=== PATIENT | female | born 1950 | race Caucasian/White ===

== ENCOUNTER 2023-12-29 06:19 | Emergency (ER) | payer MEDICARE, OTHER, SELFPAY ==
[2023-12-29 06:33] VITALS: BP 187/108
[2023-12-29 07:03] LABS: % Basophils 1.1 % (0-2); % Eosinophils 5.8 % (0-6); % Immature Granulocytes 0.2 % (0-0.5); % Lymphocytes 22.8 % (20.5-51.1); % Monocytes 7.1 % (1.7-9.3); Absolute Basophils 0.1 10^3/uL (0-0.2); Absolute Eosinophils 0.3 10^3/uL (0-0.7); Absolute Lymphocytes 1.2 10^3/uL (1.2-3.4); Absolute Monocytes 0.4 10^3/uL (0.1-0.6); Absolute Neutrophils 3.4 10^3/uL (1.4-6.5); Hematocrit 43.1 % (37.0-47.0); Hemoglobin 14.3 g/dL (12.0-16.0); Mean Corp Hgb Conc. 33.2 g/dL (33.0-37.0); Mean Corpuscular Hgb 30.2 pg (27.0-31.0); Mean Corpuscular Volume 91.1 fL (81.0-99.0); Mean Platelet Volume 8.8 fL (7.4-10.4); Nucleated Red Blood Cells % 0 %; Platelet Count 262 10^3/uL (130-400); Red Blood Cell Count 4.73 10^6/uL (4.20-5.40); Red Cell Dist. Width 12.3 % (11.5-14.5); White Blood Cell Count 5.3 10^3/uL (4.8-10.8)
[2023-12-29 07:17] LABS: ALT (SGPT) 15 U/L (0-35); AST (SGOT) 32 U/L (14-36); Albumin 4.4 g/dl (3.5-5.0); Alkaline Phosphatase 78 U/L (38-126); Blood Urea Nitrogen 14 mg/dl (7-17); Calcium 9.8 mg/dl (8.4-10.2); Carbon Dioxide 25 mmol/L (22-30); Chloride 107 mmol/L (98-107); Glucose 114 mg/dl (70-99); Potassium 4.1 mmol/L (3.5-5.1); Sodium 136 mmol/L (135-145); Total Bilirubin 0.8 mg/dl (0.2-1.3); Total Protein 7.2 g/dl (6.3-8.2); eGFR > 60.00
[2023-12-29 07:27] LABS: Troponin I < 0.012 ng/ml
[2023-12-29 07:45] VITALS: BP 181/104
--- NOTE | 2023-12-29 07:59 | ED.GENMED ---
History of Present Illness
General
Chief Complaint: Blood Pressure Problem
Source: patient and records
Exam Limitations: none
Time Seen by Provider: 12/29/23 07:56
Nursing documentation reviewed up to this point in time: agreed with
Travel History
Have you had any contact with someone who has COVID-19?: No
Do you have any symptoms of coronavirus? Fever > 100 degrees, chills, cough, shortness of breath, sore throat, loss of taste or smell, muscle aches, or headache?: No
History of Present Illness
History of Present Illness:
Patient is a 73-year-old female who presents to the emergency department because over the past few days her blood pressure has been elevated. Patient was started on losartan in November because her blood pressure was running higher than normal.
After that the blood pressure is 10/02/2019 systolic and 60-70 diastolic. Over the past few days the blood pressure has been 170/100. Patient denies any weight change, hair or skin changes. Patient's thyroid was recently checked and fine. Patient
is on 25 mg of metoprolol. Patient denies headache, visual or speech difficulties. Patient denies ataxia or focal weakness. Patient denies chest pain, shortness of breath or palpitations. Patient denies any recent illnesses, supplements or
decongestants. Patient is otherwise feeling fine.
Past History
Past History
ED Past Medical History: Arrthythmia (Atrial fibrillation), Cancer (breast, stage III), HTN and Hypothyroidism
ED Past Surgical History: Other (mastectomy)
Social History
Tobacco: Non-smoker
Personal:
Living: with family
Family History
Family History: Other (History of Atrial fibrillation)
Review of Systems
Review of Systems
All Other Systems: ROS reviewed and negative except as documented in HPI and ROS
Constitutional: Reports no symptoms
Respiratory: Reports no symptoms
Cardiac: Reports no symptoms
ABD/GI: Reports no symptoms
: Reports no symptoms
Musculoskeletal: Reports no symptoms
Skin: Reports no symptoms
Neurological: Reports no symptoms
Hematologic/Lymphatic: Reports no symptoms
Phy Exam
Physical Exam
Physical Exam:
Physical Exam
General: No apparent distress, alert and appropriate, well nourished, well hydrated
HENT: Normocephalic, supple with no lymphadenopathy, no thyromegaly
Eyes: Clear sclera, conjuctiva without injection
Heart: Regular rhythm and rate. No S3, S4. No murmur. No NVD, bruit
Lungs: No respiratory distress, no stridor, lung sounds clear and equal bilaterallyender
Abdomen: Soft, nontender, no organomegaly, no CVA tenderness, BS good
Neuro: Alert and oriented x 3, CN II - XII intact, no motor focality, no cerebellar dysfunction
Skin: no rash
Psychiatric: well kept. interactive and cooperative
Extremities: No cyanosis, tenderness, Good and equal peripheral pulses. Chronic lymphedema of the left upper extremity
Scores
Heart Failure Risk
Heart Failure Risk Score: Not Applicable
Heart Score for Chest Pain Patients
STEMI patient?: Not applicable
Withdrawal Assessment of Alcohol
Withdrawal Assessment Completed?: Not applicable
Course
Orders/Labs/Results
Orders:
Orders
12/29/23 06:37
Electrocardiogram (*1) Urgent
Reason for Study: Hypertension, Benign
12/29/23 06:38
EKG- Treatment ONCE
12/29/23 06:50
Complete Blood Count/With Diff Urgent
Comprehensive Metabolic Panel Urgent
Troponin I Urgent
12/29/23 08:19
Metoprolol Xl [Toprol Xl] 25 mg PO NOW STA
Abnormal Lab Results
12/29/23
06:50
Glucose 114 H mg/dl
(70-99)
12/29/23 06:50
12/29/23 06:50
Vital Signs
Initial and Last Documented VS:
Initial Vital Signs
Temp Pulse Resp BP Pulse Ox
99.0 F 79 20 187/108 98
12/29/23 06:33 12/29/23 06:33 12/29/23 06:33 12/29/23 06:33 12/29/23 06:33
Last Documented Vital Signs
Temp Pulse Resp BP Pulse Ox
99.0 F 79 20 187/108 98
12/29/23 06:33 12/29/23 06:33 12/29/23 06:33 12/29/23 06:33 12/29/23 06:33
*Radiology
Radiology exam reviewed: other
*Pulse Oximetry
Patient hypoxic: no
*EKG
Interpreted by ED Provider?: Yes
EKG Intrepretation Date: 12/29/23
EKG Intrepretation Time: 08:23
Interpretation: abnormal
Comparison EKG: no changes
Heart Rate: 71
Rate: normal
Rhythm: sinus
[place]: left axis deviation
Interval: normal interval
QRS Pattern: normal QRS
Ischemia: no ischemia
*Regional Owner Operator Truck Driver Interpretation
Rate: normal
Interpretation: normal
Heart Rate: 76
Rhythm: sinus and PAC's
*Critical Care Note
Total Time (30-74mins, 75-104mins- exclusive of procedures): Not Applicable
Update Note
Update Note:
Patient has asymptomatic elevation of her blood pressure. Patient's heart rate is such that she has plenty of room to increase her metoprolol. Will increase her to 50 mg a day. Did tell the patient that we will take a few days to bring down as
long as she was asymptomatic that we could try to bring it down over period of days to weeks.
ED Attending Note
-
Portions of this chart may have been created with voice recognition software.� Occasional wrong word or��sound alike� substitutions may have occurred due to the inherent limitations of voice recognition software.
Discharge Plan
Departure
Patient Disposition: Home (Routine Discharge)
Date of Disposition: 12/29/23
Time of Disposition: 08:19
Patient with high blood pressure during this ER visit?: Yes
Condition: Good
Covid-19: Not Applicable
Discharge Problem:
Hypertension
Instructions: High Blood Pressure (DC), BLOOD PRESSURE
Prescriptions:
No Action
anastrozole 1 MG tablet
1 mg PO DAILY@529
levothyroxine 100 MCG tablet
100 mcg PO DAILY@529
cholecalciferol (vitamin D3) [Vitamin D3] 2,000 UNIT capsule
2,000 unit PO DAILY@929
mupirocin 1 APPLIC ointment
1 applic intranasal BID Qty: 1 0RF
sennosides [senna] 1 TABLET tablet
2 tab PO BID 0RF
acetaminophen 325 MG tablet
650 mg PO QID 0RF
tramadol 50 MG tablet
50 mg PO Q6HPRN PRN (Reason: MODERATE-SEVERE PAIN) Qty: 35 0RF
Rx Instructions:
DX TKA
ONGOING THERAPY
magnesium hydroxide 30 ML suspension
30 ml PO DAILYPRN PRN (Reason: constipation) 0RF
docusate sodium 100 MG capsule
100 mg PO BID 0RF
warfarin [Jantoven] 5 MG tablet
5 mg PO TONIGHT AT 1800 Qty: 25 0RF
Rx Instructions:
TAKE 1 TAB TONIGHT THEN ADVISED AFTER INR ON 06/07
STOP TAKING AFTER 06/19
losartan 50 MG tablet
50 mg PO DAILY@929 Qty: 0 0RF
Rx Instructions:
HOLD SYSTOLIC BLOOD PRESSURE <130
metoprolol tartrate 25 MG tablet
12.5 mg PO DAILY@929 Qty: 0 0RF
Patient Comments:
metoprolol XR
Rx Instructions:
TAKE HALF TAB 12.5MG PER CARDIOLOGY
apixaban [Eliquis] 5 MG tablet
5 mg PO BID Qty: 0 0RF
Rx Instructions:
RESUME AFTER 06/19 WHEN COUMADIN IS DISCONTINUED AND INR <2
Activity Restrictions/Additional Instructions:
I will be here Monday and Monday 6am-3pm. Please feel free to call me with any questions or concerns. Increase the metoprolol to 50mg a day. If this fails to bring down your blood pressure over the next week or so may need to go up on the
losartan or add a calcium channel rosario. Continue the rest your medications as needed.
Interventions
Interventions:
*Risk Screen - Suicide Last Done: 12/29/23 06:34
*General Assessment Last Done: 12/29/23 07:48
*Neglect/Abuse Screening Last Done: 12/29/23 06:34
*ED COVID-19 Vaccine History Last Done: 12/29/23 06:34
ED- Cardiac Assessment Last Done: 12/29/23 07:49
ED- Neurological Assessment Last Done: 12/29/23 07:49
ED- Pulmonary Assessment Last Done: 12/29/23 07:49
Discharge Date and Time
Print Language: LAO
[2023-12-29 08:00] VITALS: BP 169/96
[2023-12-29] MEDS: TOPROL XL 25 MG PO (08:28)
== END 2023-12-29 08:44 | disposition home or self-care (01) ==
LOC: EMR 06:19
PROVIDERS: Student in an Organized Health Care Education/Training Program; EMERGENCY PHYSICIAN Emergency Medicine; FAMILY PHYSICIAN Internal Medicine
DX: E03.9 Hypothyroidism, unspecified (principal); I48.0 Paroxysmal atrial fibrillation; G62.9 Polyneuropathy, unspecified; I10 Essential (primary) hypertension; M19.90 Unspecified osteoarthritis, unspecified site; Z85.3 Personal history of malignant neoplasm of breast; Z90.12 Acquired absence of left breast and nipple
CPT/HCPCS: 99283; 80053; 84484; 85025; 93005

== ENCOUNTER 2025-02-04 12:19 | Inpatient (IN) | payer MEDICARE, OTHER, SELFPAY ==
[2025-02-04] VITALS (9 sets, daily range): BP systolic 121–160; BP diastolic 77–95; BMI 28.4; BMI 27.8
[2025-02-04 09:23] LABS: Glucose - Point of Care 100 mg/dl (70-99)
--- NOTE | 2025-02-04 09:32 | EDRN ---
Dr. Hollis in room w/pt at this time.
--- NOTE | 2025-02-04 09:45 | ED.CVA ---
History of Present Illness
General
Chief Complaint: CVA/TIA Symptoms
Source: patient and spouse
Exam Limitations: none
Time Seen by Provider: 02/04/25 09:25
Onset of Stroke Symptoms
Onset of symptoms known: No
Time pt last seen normal is known: Yes
Date last time pt seen normal: 02/03/25
Time last time pt seen normal: 23:00
History of Present Illness
History of Present Illness:
74-year-old female 2 days of posterior neck pain nontraumatic. Saw her primary physician. Started on a Medrol Dosepak. However this morning she woke up with weakness and incoordination of her left side. No vertigo disequilibrium speech issues or
other complaints.
Past History
Past History
ED Past Medical History: Arrthythmia (Atrial fibrillation), Cancer (breast, stage III), HTN and Hypothyroidism
ED Past Surgical History: Other (mastectomy)
Social History
Tobacco: Non-smoker
Personal:
Living: with family
Family History
Family History: Other (History of Atrial fibrillation)
Review of Systems
Review of Systems
All Other Systems: Not applicable
Respiratory: Reports no symptoms
Cardiac: Reports no symptoms
Phy Exam
Physical Exam
Physical Exam:
GENERAL: Alert and oriented in no apparent distress
EYE: Orbits normal.
NECK: Supple, no significant adenopathy.
ENT: Pharynx without erythema
CARDIAC: Regular rate and rhythm without any obvious murmurs.
LUNGS: Clear breath sounds,normal
ABDOMEN: Soft, without focal tenderness or distention
NEUROLOGICAL: Alert and oriented , cranial nerves II through XII are intact. Speech normal. Extraocular muscles intact. Slightly decreased [id number] on the left and questionable tiny left-sided drift. However grossly has very good strength.
Slightly poor [id number] on the left. Light touch intact.
SKIN: Warm and dry, no rash or lesion, no discoloration, skin intact.
MUSCULOSKELETAL: No edema,no deformity.Good color
PSYCH: Normal and appropriate interaction.
Scores
NIH Stroke Score
Level of Consciousness: 0 - Alert
LOC Questions: 0-Answers both correctly
LOC Commands: 0-Performs both correctly
Best Horizontal Gaze: 0-Normal
Visual Knight: 0=Normal, no visual loss
Facial Palsy: 0=Normal, symmetrical
Motor - Right Arm: 0=No drift 10 seconds
Motor - Left Arm: 1=Drift < 10 seconds
Motor - Right Le-No drift 5 seconds
Motor - Left Le-Drift < 5 seconds
Limb Ataxia: 2-Present in two limbs
Sensation: 0-Normal
Best Language: 0-No aphasia
Dysarthria: 0-Normal
Extinction and Inattention: 0-No abnormality
Total Score:: 4
Course
Orders/Labs/Results
Orders:
Orders
02/04/25 09:36
Electrocardiogram (*1) Stat
Reason for Study: Other
Other Reason for Exam: neuro symptoms
CT HEAD STROKE ALERT W/o Cont Urgent
Comment:
Reason For Exam: Left-sided weakness
CT HEAD/NECK ANG STROKE ALERT Urgent
Comment:
Reason For Exam: Left-sided weakness
Bedside Glucose- Treatment ONCE
Cardiac Monitoring- Treatment ONCE
EKG- Treatment ONCE
IV Insert/Care/Rem.- Treatment PRN
Pulse Ox/cont/shift [RESP] Stat
Quantity: 1
02/04/25 10:00
Basic Metabolic Panel Urgent
Complete Blood Count/With Diff Urgent
PTT Urgent
Prothrombin Time Urgent
02/04/25 10:15
MR Cervical Spine Without Urgent
Comment:
Reason For Exam: Cervical radiculopathy
OK for patient to be off Cardiac Monitoring for MRI: No
Recent pill cam endoscopy?: No
02/04/25 10:25
Acetaminophen [Tylenol] 650 mg .ROUTE .STK-MED ONE
02/04/25 10:26
Acetaminophen [Tylenol] 650 mg PO NOW STA
02/04/25 11:01
MR Brain W/o & With Contrast Routine
Comment:
Reason For Exam: left arm weakness
OK for patient to be off Cardiac Monitoring for MRI: No
Recent pill cam endoscopy?: No
02/04/25 11:42
Admit/Transfer Patient As Directed
Co-Sign Provider:
Level of Care: Inpatient admission
Assign to:: Telemetry
Physician / Group: Darrell Julien
Diagnosis: CVA
Reason for Telemetry: CVA/TIA
Date to Stop Telemetry: 02/07/25
Time to Stop Telemetry: 11:00
Reason for Hospitalization: CVA vs Polyradiculopathy
Expected length of stay greater than two midnights?: Yes
ELOS- Estimated Length of Stay in days: 2
I certify the patient meets the requirements for IP care: Yes
PRN Pain Medication Management As Directed
May give lesser potent ordered pain med per pt: Yes
preference::
Protocol:: Medication orders for pain may be administered in a
manner that supports deferring to patient preference
when the pt is:
- Requesting an ordered lesser potent pain medication.
Least to most potent pain medications are defined
as: acetaminophen < NSAID < tramadol < opioids
(morphine, oxycodone, hydromorphone).
- Requesting a lesser dose of the same medication IF
ORDERED.
- Requesting a less intrusive route of administration
if both routes are prescribed by the provider (PO <
IV).
02/04/25 11:45
Code Status As Directed
Resuscitation Status: Full Code
02/07/25 11:00
DC Protocol for Telemetry ONCE
Abnormal Lab Results
02/04/25 02/04/25 02/04/25
09:18 10:00 10:01
WBC 11.3 H 10^3/uL
(4.8-10.8)
MCH 31.5 H pg
(27.0-31.0)
Abs Immat Gran (auto) 0.1 H 10^3/uL
(0-0.05)
Absolute Neuts (auto) 9.4 H 10^3/uL
(1.4-6.5)
Absolute Lymphs (auto) 1.1 L 10^3/uL
(1.2-3.4)
Neutrophils % 83.8 H %
(42.2-75.2)
Lymphocytes % 10.0 L %
(20.5-51.1)
PT 15.0 H Sec
(11.4-14.6)
Glucose 116 H mg/dl
(70-99)
POC Glucose 100 H mg/dl 104 H mg/dl
(70-99) (70-99)
02/04/25 10:00
02/04/25 10:00
Vital Signs
Initial and Last Documented VS:
Initial Vital Signs
Temp Pulse Resp BP Pulse Ox
98.4 F 65 20 152/89 98
02/04/25 09:16 02/04/25 09:16 02/04/25 09:16 02/04/25 09:16 02/04/25 09:16
Last Documented Vital Signs
Temp Pulse Resp BP Pulse Ox
98.4 F 68 20 160/88 96
02/04/25 09:16 02/04/25 11:15 02/04/25 11:15 02/04/25 11:00 02/04/25 11:15
MDM/Problems Addressed
Differential Diagnosis Includes:
Patient describing a wake-up stroke. Has had neck pain the last few days nontraumatic. On Eliquis. Not thrombolytic candidate. Would potentially be a IAT candidate if appropriate. Stroke alert called. Discussed perfusion scan with neurology.
Will hold on perfusion scan. Also would consider dissection with posterior neck pain
*Radiology
Radiology exam reviewed: radiology read reviewed (No acute findings)
*Pulse Oximetry
Patient hypoxic: no
*EKG
Interpreted by ED Provider?: Yes
Interpretation: normal
Comparison EKG: no changes
Heart Rate: 70
Rate: normal
Rhythm: sinus and PAC's
[place]: left axis deviation
Interval: normal interval
QRS Pattern: normal QRS
Ischemia: no ischemia
*Terrazzo Installer Interpretation
Rate: normal
Interpretation: normal
Heart Rate: 77
Rhythm: sinus
*Critical Care Note
Total Time (30-74mins, 75-104mins- exclusive of procedures): 40
Data Reviewed
Review of Other/Old Records Reveals: Labs, Records and Testing
Update Note
Update Note:
Patient has remained stable. CTA negative. Admission for further care
ED Attending Note
-
Portions of this chart may have been created with voice recognition software.� Occasional wrong word or��sound alike� substitutions may have occurred due to the inherent limitations of voice recognition software.
Discharge Plan
Departure
Patient Disposition: Admit
Date of Disposition: 02/04/25
Time of Disposition: 10:27
Presentation/result/management discussed w/ accepting MD/DO: Neurology
Discharge Problem:
Left-sided weakness/neck pain, Possible CVA, Anticoagulated
Prescriptions:
No Action
cholecalciferol (vitamin D3) [Vitamin D3] 2,000 UNIT capsule
2,000 unit PO DAILY
Eliquis 5 MG tablet
5 mg PO BID Qty: 0 0RF
metoprolol succinate [Toprol XL] 50 mg tablet extended release 24 hr
50 mg PO DAILY Qty: 30 2RF
acetaminophen [Tylenol Extended Release] 650 mg Tablet Extended Release
1,300 mg PO [id number] PRN (Reason: mild pain)
losartan 50 MG tablet
50 mg PO BID
levothyroxine [Synthroid] 88 mcg Tablet
88 mcg PO DAILY
methylprednisolone [Medrol (Sean)] 4 mg Tablets,Dose Pack
0 mg PO PER PKG DIR
rosuvastatin [Crestor] 10 mg Tablet
10 mg PO DAILY
escitalopram oxalate [Lexapro] 5 mg Tablet
5 mg PO HS
Referrals:
UNKNOWN - PT DOES,NOT KNOW [Family Provider] -
Interventions
Interventions:
*Risk Screen - Suicide Last Done: 02/04/25 10:08
*General Assessment Last Done: 02/04/25 10:08
*Neglect/Abuse Screening Last Done: 02/04/25 10:08
*ED- Fall Risk Assessment Last Done: 02/04/25 10:08
*ED COVID-19 Vaccine History Last Done: 02/04/25 10:08
ED- Pulmonary Assessment Last Done: 02/04/25 10:19
ED- Neurological Assessment Last Done: 02/04/25 10:14
ED- Cardiac Assessment Last Done: 02/04/25 10:19
ED Swallowing Screen Last Done: 02/04/25 10:14
Discharge Date and Time
Print Language: [place] CITIZ[place]
--- NOTE | 2025-02-04 09:56 | EDRN ---
Neurologist in room w/ pt on return from CT.
[2025-02-04 10:02] LABS: Glucose - Point of Care 104 mg/dl (70-99)
--- NOTE | 2025-02-04 10:05 | CON.NEURO ---
Consultation
Order
Date of Consultation: 02/04/25
Requesting Provider: Mazin Hollis MD
Reason for Consult: Stroke alert
Called in 9: 39 AM
Neurology Consultation Note.
HPI: This is a 74-year-old right-handed woman who presents to [facility] on February 04, 2025 with motor and sensory deficits. According to the patient she developed shoulder and neck spasms, as well as sensory changes in L>R hand on
Monday afternoon when the patient reached out to hand a piece of paper and felt something pull across the top of their shoulders in the 'trapezius area'.
Following this incident, the patient experienced spasms across both shoulders, tenderness on palpation which have been persistent. The patient initially noticed tingling in both hands on Monday, which subsided on Monday but has since returned
intermittently with the spasms.
This morning, Ms. Stephens noted decreased temperature sensation in her left hand, when she was unable to feel an ice pack applied to her neck for spasms relief. The right hand maintained normal sensation. The patient denies weakness in the hands
but expresses difficulty in explaining the exact sensation. They also report that while walking, their legs felt as if her knees were going to give out, though they distinguish this from vertigo, which they experienced years ago.
The patient noted left arm weakness and coordination difficulties noticed upon waking at 5 AM this morning. She went to sleep around 9 PM yesterday. No reports of headaches, change in vision, speech, vertigo or abnormal movements. Ms. Stephens
woke up during the night due to head pain that extended to the shoulders. It is unclear whether the left-sided weakness was present during this nighttime awakening.
The patient's reports that a couple of days ago, she experienced pain in her left shoulder near her neck after lifting something. Initially, she thought it was a pinched nerve, but the pain progressively worsened.
Her symptoms continued to worsen overnight, with increasing pain and difficulty sleeping. The patient attempted to alleviate her symptoms with heat pads and ice packs, but these measures were ineffective. This morning, she asked her to bring
her to the hospital due to left hand weakness.
ER VS: 155/88, 64, afebrile.
PDMP:none
CT head wo contrast -minimal decreased attenuation in the periventricular deep white matter bilaterally
CTA head/neck�no evidence of significant stenosis or dissection.
PMH: A-fib, HTN, DLP, L breast adenocarcinoma(status post chemo and RT), hypothyroidism, L arm lymphedema, vitamin D deficiency, OA, KERI
PSH: L mastectomy/axillary nerve dissection(2010), bilateral cataract extraction, tubal ligation, Bl TKA,
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
FH: Father, brother�A-fib,mother BRCA/breast cancer
All: ACEIs
ROS: Constitutional: Negative. Negative for chills, fever and unexpected weight change.
HENT: Negative for ear pain, hearing loss, tinnitus and trouble swallowing.
Eyes: Negative. Negative for photophobia, pain and visual disturbance.
Respiratory: Negative for cough, choking and shortness of breath.
Cardiovascular: Negative for chest pain, palpitations and leg swelling.
Gastrointestinal: Negative for abdominal pain and vomiting.
Endocrine: Negative. Negative for cold intolerance.
Genitourinary: Negative for dysuria, flank pain and urgency.
Musculoskeletal: positive for neck pain
Skin: Negative for rash.
Allergic/Immunologic: Negative. Negative for immunocompromised state.
Neurological: Positive for left arm weakness and paresthesias
Psychiatric/Behavioral: Negative for behavioral problems, confusion and hallucinations.
General: Well developed. In no acute distress.
Cardio: Regular rate and rhythm without murmur. Extremities are without cyanosis or edema.
Neuro:
Mental Status: Alert, oriented to person, place, and date. Minimally impaired attention and recall. Good fund of knowledge. Follows complex requests across the midline. Comprehension, naming, and repetition intact.
Cranial Nerves: Pupils are equally round, surgical EOMs full. Visual stevens full to confrontation. No ptosis. No nystagmus. V1-V3 intact to light touch and pinprick bilaterally, symmetric. Face symmetric. Reduced hearing on the left. The
palate elevated well. SCMs and traps 5/5. Tongue midline. No dysarthria.
Motor: Strength is 5 out of 5 except for left deltoid, triceps, biceps 4 out of 5.
Sensory: Absent vibration at the toes and ankles and preserved at the knees
Reflexes: Absent left biceps and triceps. Negative Rachel's bilaterally. Negative clonus of the ankles
Coordination: No dysmetria or tremor. No extinction to DSS
Gait: deferred
Assessment and Plan:
I. Probable C5-C7 cervical radiculopathy, less likely post-RT brachial plexopathy. Not a candidate for IV TNK due to systemic anticoagulation.
II. PA A-fib
III. Chronic toxic polyneuropathy.
IV. Stage III left breast cancer, status post remote RT
- Continue Telemetry monitoring
- Fall precautions
- Please obtain C-spine MRI without gadolinium
- Brain MRI with and without keri
- Hold Eliquis and start aspirin 81 mg daily
- Further workup will depend on MRI results
- DVT prophylaxis.
I personally reviewed all radiology and labs along with past medical records pertinent to current medical problems. Total time spent in patient care is 60 minutes.
Thank you for allowing us to participate in the care of this patient. We will continue to follow. Please do not hesitate to contact us with any questions or concerns.
Subjective/Objective
Subjective Data
Date of Service: February 04, 2025
Objective Data
Vital Signs
Temp Pulse Resp BP Pulse Ox
36.9 C 65 20 152/89 98
02/04/25 09:16 02/04/25 09:16 02/04/25 09:16 02/04/25 09:16 02/04/25 09:16
Patient Allergies
lisinopril Adverse Reaction (Verified 12/29/23 06:33)
cough
Medications
-
Home Medications
�Medication �Instructions �Recorded
anastrozole 1 mg tablet 1 mg PO DAILY@52912/23/12
cholecalciferol (vitamin D3) 50 2,000 unit PO DAILY@92905/15/19
mcg (2,000 unit) capsule (Vitamin
D3)
levothyroxine 100 mcg tablet 100 mcg PO DAILY@52905/15/19
mupirocin 2 % topical ointment 1 applic intranasal BID #1 tube 05/27/19
acetaminophen 325 mg tablet 650 mg (2 x 325 mg) PO QID 06/06/19
apixaban 5 mg tablet (Eliquis) 5 mg PO BID ##0 06/06/19
docusate sodium 100 mg capsule 100 mg PO BID 06/06/19
losartan 50 mg tablet 50 mg PO DAILY@929 ##0 06/06/19
magnesium hydroxide 400 mg/5 mL 30 ml PO DAILYPRN PRN constipation 06/06/19
oral suspension
metoprolol tartrate 25 mg tablet 12.5 mg (1/2 x 25 mg) PO 06/06/19
DAILY@929 ##0
sennosides 8.6 mg tablet (senna) 2 tab PO BID 06/06/19
tramadol 50 mg tablet 50 mg PO Q6HPRN PRN 06/06/19
MODERATE-SEVERE PAIN #35 tabs
warfarin 5 mg tablet (Jantoven) 5 mg PO TONIGHT AT 1800 #25 tabs 06/06/19
metoprolol succinate 50 mg 50 mg PO DAILY #30 tabs 12/29/23
tablet,extended release 24 hr
(Toprol XL)
Vital Signs and Labs
-
Vital Signs and Labs:
Vital Signs
Temp Pulse Resp BP Pulse Ox
36.9 C 64 18 155/88 98
02/04/25 09:16 02/04/25 10:01 02/04/25 10:01 02/04/25 10:01 02/04/25 10:01
Home Medications
-
Home Medications
cholecalciferol (vitamin D3) 50 mcg (2,000 unit) capsule (Vitamin D3) 2,000 unit PO DAILY@0930 05/15/19
apixaban 5 mg tablet (Eliquis) 5 mg PO BID ##0 06/06/19
metoprolol succinate 50 mg tablet,extended release 24 hr (Toprol XL) 50 mg PO DAILY #30 tabs 12/29/23
acetaminophen 650 mg tablet,extended release 1,300 mg PO [id number] PRN mild pain 02/04/25
escitalopram oxalate 5 mg tablet (Lexapro) 5 mg PO HS 02/04/25
levothyroxine 88 mcg tablet (Synthroid) 88 mcg PO DAILY 02/04/25
losartan 50 mg tablet 50 mg PO BID 02/04/25
methylprednisolone 4 mg tablets in a dose pack (Medrol (Sean)) 0 mg PO PER PKG DIR 02/04/25
rosuvastatin 10 mg tablet (Crestor) 10 mg PO DAILY 02/04/25
[2025-02-04 10:21] LABS: % Basophils 0.4 % (0-2); % Eosinophils 0.4 % (0-6); % Immature Granulocytes 0.4 % (0-0.5); % Neutrophils 83.8 % (42.2-75.2); Absolute Eosinophils 0.1 10^3/uL (0-0.7); Absolute Immature Granulocytes 0.1 10^3/uL (0-0.05); Absolute Lymphocytes 1.1 10^3/uL (1.2-3.4); Absolute Monocytes 0.6 10^3/uL (0.1-0.6); Absolute Neutrophils 9.4 10^3/uL (1.4-6.5); Hematocrit 40.5 % (37.0-47.0); Mean Corp Hgb Conc. 34.6 g/dL (33.0-37.0); Mean Corpuscular Hgb 31.5 pg (27.0-31.0); Mean Platelet Volume 9.2 fL (7.4-10.4); Nucleated Red Blood Cells % 0 %; Platelet Count 280 10^3/uL (130-400); Red Blood Cell Count 4.45 10^6/uL (4.20-5.40); Red Cell Dist. Width 12.6 % (11.5-14.5); White Blood Cell Count 11.3 10^3/uL (4.8-10.8)
[2025-02-04] MEDS: TYLENOL 650 MG PO ×2 (10:26→15:06)
[2025-02-04 10:33] LABS: APTT 28.8 Sec (23.4-35.0); INR 1.15
[2025-02-04 10:37] LABS: Blood Urea Nitrogen 15 mg/dl (7-17); Calcium 9.7 mg/dl (8.4-10.2); Carbon Dioxide 23 mmol/L (22-30); Chloride 106 mmol/L (98-107); Estimated Creatinine Clearance 70 ml/min; Glucose 116 mg/dl (70-99); Potassium 3.7 mmol/L (3.5-5.1); Sodium 138 mmol/L (135-145); eGFR > 60.00
--- NOTE | 2025-02-04 10:39 | EDRN ---
Pt states that she awoke this am and had a near syncopal episode attempting to get OOB so sat prior to standing but when she did get up she was not walking correctly, L leg weak and feeling as if knee going to give out. Pt does have neuropathy in
her feet. Pt also feeling as if L arm was off. Pt also states she took 5 mg of flexeril prior to sleeping Monday night. Pt states she reached out w/ L arm to show spouse something to her spouse on Sat and felt a pull in her L lateral neck/trapezius
area. Pt feeling nothing else that day and slept fine Monday night. Pt states Monday was a bad day w/ spasms in her bilateral neck accompanied w/. tingling in bilateral fingertips and then would get pain in her posterior head. Pt finally got some
relief after taking 200 mg of motrin then was unable to sleep at all throughout the night r/t the spasms, tingling and posterior head pain. Pt saw her PCP on Monday and was diagnosed w/ possible trapezius pull L shoulder area and prescribed flexeril
5 mg and medrol dose thea.
--- NOTE | 2025-02-04 11:29 | EDRN ---
Pt OOB to BR and limped toward L leg.
--- NOTE | 2025-02-04 11:31 | EDRN ---
Dr. Michelle Julien in room w/pt at this time.
--- NOTE | 2025-02-04 11:36 | EDRN ---
Pt was able to return to stretcher w/out much difficulty but her L side gait was still off.
--- NOTE | 2025-02-04 12:46 | EDRN ---
TT sent to Michelle Chamorro about pt's medrol dosepak she is on for her trapezius pull as a dose was due at noon, w/ info that pt did pass her swallow test as well.
--- NOTE | 2025-02-04 14:19 | HPS.HSE ---
Family Physician
-
Family Physician: NOT KNOW UNKNOWN - PT DOES
Chief Complaint
-
LLU weakness and numbness
History of Present Illness
74 female history of atrial fibrillation hypertension hypothyroidism hyperlipidemia who presents with weakness numbness tingling in the left upper extremity that began overnight. States 3 days ago began to experience muscle spasms in the neck and
shoulder region bilaterally however developed sensory changes Monday afternoon. States prior to this was helping to lift something for her when the states to clinic and after that has had pain. Thought this was a pinched nerve.
Additionally, visit was prompted by holding a cold ice pack in her right hand noticing it was cold however her left hand was unable to sense this
Also states that her gait is abnormal now and feels unsteady.
In the ED remained hemodynamically stable. CBC unremarkable apart from white blood cell count of 11.3, chemistry overall, head CT with no acute intracranial abnormalities, head and neck CTA no significant carotid atherosclerotic laterally no
evidence of internal carotid artery or vertebral artery dissection bilaterally and no significant proximal intracranial arterial stenosis or vessel cutoff noted.
Did not receive TNKase as on Eliquis 5 mg twice a day.
Past surgical history of tubal ligation, left and right knee replacement, mastectomy with node dissection.
Never smoker, alcohol rarely once or twice a week, no drug use history
Family history mom atrial fibrillation CVA, father atrial fibrillation heart failure, brother atrial fibrillation Parkinson's unclear cause of at this time
Allergies to lisinopril causes dry cough
Medical History
Past Medical History
Past Medical History: Reports Arrhythmia
Past Surgical History: Reports Gynocological, Orthopedic and Other
Social History
Tobacco: Non-smoker
Family History
Family History: CAD and Other
Allergies / Home Medications
Allergies reflects when Allergies were last updated in [facility].
Home Medications with original date entered in [facility]
Allergy/Medication List:
Allergies
Allergy/AdvReac Type Severity Reaction Status Date / Time
lisinopril AdvReac cough Verified 12/29/23 06:33
Home Medications
cholecalciferol (vitamin D3) 50 mcg (2,000 unit) capsule (Vitamin D3) 2,000 unit PO DAILY 05/15/19
apixaban 5 mg tablet (Eliquis) 5 mg PO BID ##0 06/06/19
metoprolol succinate 50 mg tablet,extended release 24 hr (Toprol XL) 50 mg PO DAILY #30 tabs 12/29/23
acetaminophen 650 mg tablet,extended release 1,300 mg PO [id number] PRN mild pain 02/04/25
escitalopram oxalate 5 mg tablet (Lexapro) 5 mg PO HS 02/04/25
levothyroxine 88 mcg tablet (Synthroid) 88 mcg PO DAILY 02/04/25
losartan 50 mg tablet 50 mg PO BID 02/04/25
methylprednisolone 4 mg tablets in a dose pack (Medrol (Sean)) 0 mg PO PER PKG DIR 02/04/25
rosuvastatin 10 mg tablet (Crestor) 10 mg PO DAILY 02/04/25
Review of Systems
-
A 12 point ROS was completed and negative except as noted: Yes
Physical Exam
Vital Signs
Vital Signs
Temp Pulse Resp BP Pulse Ox
98.4 F 59 21 144/77 96
02/04/25 09:16 02/04/25 14:00 02/04/25 14:00 02/04/25 14:00 02/04/25 13:15
Physical Exam
General: Well Developed
Laboratory Results
-
02/04/25 10:00
02/04/25 10:00
Laboratory Results
PT 15.0 Sec (11.4-14.6) H 02/04/25 10:00
INR 1.15 02/04/25 10:00
APTT 28.8 Sec (23.4-35.0) 02/04/25 10:00
Impression/Plan
-
NAD
Scleral Anicteric
MMM
No JVD
CTABL
RRR, S1/S2
Soft, NT, ND, BS+
Warm, Dry
AAOx3, CN II to XII intact, movable, yzusla-um-ubie movements intact, tdkv-qr-bcsr intact, no pronator drift, 5/5 motor strength in bilateral upper and lower extremities
Calm
Suspect cervical radiculopathy less likely acute CVA
MRI brain, MRI C-spine
Hold Eliquis, if stroke ruled out can resume
Start aspirin, if stroke ruled out can discontinue in favor of Eliquis
Telemetry
Fall precautions
Change Crestor from 10 mg to 20 mg at bedtime
PT/OT
Continue Medrol Dosepak
Neurology
Atrial fibrillation�paroxysmal
Currently in sinus rhythm
Hold Eliquis in the off chance this is a stroke to prevent hemorrhagic conversion
Continue beta-rosario
Hypothyroidism
Continue Synthroid
Hypertension
Continue antihypertensive
Depression
Continue antidepressives
[2025-02-04] MEDS: TOPROL XL 50 MG PO (15:05)
--- NOTE | 2025-02-04 16:17 | PTCARENOTE ---
Pt here for Echo and Bubble Study. Right antecubital IV site clear, flushed easily, no redness, no edema. Bubble Study completed per protocol with aseptic technique, pt tolerated procedure well. Denies dizziness, pt offers no complaints. No
change in status.
[2025-02-04] MEDS: COZAAR 50 MG PO (19:59)
[2025-02-04] MEDS: LEXAPRO 5 MG PO (22:22)
[2025-02-05] VITALS (11 sets, daily range): BP systolic 68–144; BP diastolic 62–88; PULSE 69; BMI 27.5
--- NOTE | 2025-02-05 00:49 | PTCARENOTE ---
assumed care of patient. pt is AAOx3- anxious and tearful about diagnosis. 97% RA. VSS. pt able to use bscx2 assist but getting weaker throughout shift. pt with frequent urination, distended bladder, and feeling like she is not emptying her bladder.
bladder scanned for 1035ml. 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 pt reported immediate relief. NIH remains 3- drift in both left arm and leg, some ataxia clumsiness to left arm. MRI performed tonight. care
ongoing.
[2025-02-05] MEDS: TYLENOL 650 MG PO ×5 (01:28→21:42)
--- NOTE | 2025-02-05 04:40 | PTCARENOTE ---
pt getting weaker and weaker throughout shift. was x1 assist to BSC at beginning of shift. x2 assist to BSC throughout shift to almost fully lifting pt OOB. NIH still remains 3, legs just almost buckling when OOB. pt educated on using bedpan now
until her strength is better and for safety. patient agreeable.
[2025-02-05] MEDS: SYNTHROID 88 MCG PO (05:35)
[2025-02-05 07:08] LABS: HDL Cholesterol 103 mg/dl; LDL Cholesterol, Calculated 61 mg/dl; Total Cholesterol 180 mg/dl (50-199); Triglyceride 80 mg/dl (10-149); Very Low Density Lipoprotein 16 mg/dl (0-30)
--- NOTE | 2025-02-05 07:34 | W.PN.NEURO.1 ---
Today's Communication / Plan
-
.
Subjective/Objective
Subjective Data
Date of Service: February 05, 2025
Neurology follow-up note.
Ms. Stephens reports experiencing spasms in the neck and legs, as well as urinary retention. She describes a sensation in her legs as 'like jogging' or spasming, which are reported to be painless. She endorses proximal upper extremity weakness.
No change in vision, headaches dysphagia, dyspnea dysarthria. No recent vaccinations or travel.
C-spine MRI with and without keri�C2, C3, and C4 enhancing 4.4 cm intramedullary lesion, severe DJD.
Brain MRI with and without keri�no acute infarct or enhancement.
PMH: A-fib, HTN, DLP, L breast adenocarcinoma(status post chemo and RT), hypothyroidism, L arm lymphedema, vitamin D deficiency, OA, KERI
PSH: L mastectomy/axillary nerve dissection(2010), bilateral cataract extraction, tubal ligation, Bl TKA,
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
FH: Father, brother�A-fib,mother BRCA/breast cancer
All: ACEIs
ROS: Constitutional: Negative. Negative for chills, fever and unexpected weight change.
HENT: Negative for ear pain, hearing loss, tinnitus and trouble swallowing.
Eyes: Negative. Negative for photophobia, pain and visual disturbance.
Respiratory: Negative for cough, choking and shortness of breath.
Cardiovascular: Negative for chest pain, palpitations and leg swelling.
Gastrointestinal: Negative for abdominal pain and vomiting.
Endocrine: Negative. Negative for cold intolerance.
Genitourinary: Negative for dysuria, flank pain and urgency.
Musculoskeletal: positive for neck pain
Skin: Negative for rash.
Allergic/Immunologic: Negative. Negative for immunocompromised state.
Neurological: Positive for left arm weakness and paresthesias
Psychiatric/Behavioral: Negative for behavioral problems, confusion and hallucinations.
General: Well developed. In no acute distress.
Cardio: Regular rate and rhythm without murmur. Extremities are without cyanosis or edema.
Neuro:
Mental Status: Alert, oriented to person, place, and date. Minimally impaired attention and recall. Good fund of knowledge. Follows complex requests across the midline. Comprehension, naming, and repetition intact.
Cranial Nerves: Pupils are equally round, surgical EOMs full. Visual stevens full to confrontation. No ptosis. No nystagmus. V1-V3 intact to light touch and pinprick bilaterally, symmetric. Face symmetric. Reduced hearing on the left. The
palate elevated well. SCMs and traps 5/5. Tongue midline. No dysarthria.
Motor: Strength is 5 out of 5 except for bilateral dense 4 out of 5, bilateral biceps 4 out of 5
Sensory: Absent vibration at the toes and ankles and preserved at the knees
Reflexes: 1+ R biceps, limited exam of the left upper extremity due to compression sleeve. Negative Rachel's bilaterally. Negative clonus of the ankles
Sensory: Absent vibration in the toes and ankles (chronic)
Coordination: No dysmetria or tremor. No extinction to DSS
Gait: deferred
Assessment and Plan:
I. C2-C4 intrinsic myelopathy. Differential diagnosis includes autoimmune vs inflammatory vs demyelinating, less likely vascular, infectious or neoplastic.
II. PA A-fib
III. Chronic toxic polyneuropathy.
IV. Stage III left breast cancer, status post remote RT
- Continue Telemetry monitoring
- Please check postvoid residuals
- Fall and aspiration precautions
- Please obtain T-spine MRI with and without keri
- Myelopathy blood
- Start gabapentin
- CSF studies
- PT
- Mechanical and chemical DVT prophylaxis
I personally reviewed all radiology and labs along with past medical records pertinent to current medical problems. Total time spent in patient care is 60 minutes
Objective Data
Vital Signs
Temp Pulse Resp BP Pulse Ox
36.6 C 61 20 142/80 94
02/05/25 03:35 02/05/25 03:35 02/05/25 03:35 02/05/25 03:35 02/05/25 03:35
Lab Results
02/04/25 10:00
02/04/25 10:00
PT 15.0 Sec (11.4-14.6) H 02/04/25 10:00
INR 1.15 02/04/25 10:00
APTT 28.8 Sec (23.4-35.0) 02/04/25 10:00
Sodium 138 mmol/L (135-145) 02/04/25 10:00
Potassium 3.7 mmol/L (3.5-5.1) 02/04/25 10:00
BUN 15 mg/dl (7-17) 02/04/25 10:00
Glucose 116 mg/dl (70-99) H 02/04/25 10:00
Calcium 9.7 mg/dl (8.4-10.2) 02/04/25 10:00
LDL Cholesterol, Calc 61 mg/dl 02/05/25 05:44
Patient Allergies
lisinopril Adverse Reaction (Verified 12/29/23 06:33)
cough
Vital Signs and Labs
-
Vital Signs and Labs:
Vital Signs
Temp Pulse Resp BP Pulse Ox
36.7 C 61 16 144/77 98
02/05/25 07:15 02/05/25 08:29 02/05/25 07:15 02/05/25 08:29 02/05/25 07:15
Lab Results
02/04/25 10:00
02/04/25 10:00
PT 15.0 Sec (11.4-14.6) H 02/04/25 10:00
INR 1.15 02/04/25 10:00
APTT 28.8 Sec (23.4-35.0) 02/04/25 10:00
Sodium 138 mmol/L (135-145) 02/04/25 10:00
Potassium 3.7 mmol/L (3.5-5.1) 02/04/25 10:00
BUN 15 mg/dl (7-17) 02/04/25 10:00
Glucose 116 mg/dl (70-99) H 02/04/25 10:00
Calcium 9.7 mg/dl (8.4-10.2) 02/04/25 10:00
LDL Cholesterol, Calc 61 mg/dl 02/05/25 05:44
Medications
-
Medications:
Generic Name Dose Route Start Last Admin
Trade Name Freq PRN Reason Stop Dose Admin
Acetaminophen 650 mg 02/04/25 14:29
Acetaminophen 650 Mg Rectal Suppository RECTAL 03/04/25 14:28
Q4HPRN PRN
PEREZ, mild pain, or temp >100.4F
Acetaminophen 650 mg 02/04/25 14:29 02/05/25 06:31
Acetaminophen 325 Mg Tablet PO 03/04/25 14:28 650 mg
Q4HPRN PRN Administration
PEREZ, mild pain, or temp >100.4F
Aspirin 81 mg 02/05/25 08:00 02/05/25 08:29
Aspirin 81 Mg Chewable Tablet PO 03/05/25 07:59 81 mg
DAILY CARLOS A Administration
Cholecalciferol 50 mcg 02/05/25 08:00 02/05/25 08:30
Cholecalciferol (Vitamin D3) 50 Mcg Tablet (2,000 Units) PO 03/05/25 07:59 50 mcg
DAILY CARLOS A Administration
Escitalopram Oxalate 5 mg 02/04/25 22:00 02/04/25 22:22
Escitalopram 5 Mg Tablet PO 03/04/25 21:59 5 mg
HS CARLOS A Administration
Methylprednisolone Sodium 58 mls @ 100 mls/hr 02/05/25 08:00 02/05/25 08:30
Succinate 500 mg/ Sodium IV 06/04/25 07:59 58 mls
Chloride Q24H CARLOS A Administration
Levothyroxine Sodium 88 mcg 02/05/25 06:00 02/05/25 05:35
Levothyroxine 88 Mcg Tablet PO 03/05/25 05:59 88 mcg
DAILY@0600 CARLOS A Administration
Losartan Potassium 50 mg 02/04/25 20:00 02/05/25 08:29
Losartan 50 Mg Tablet PO 03/04/25 19:59 50 mg
BID CARLOS A Administration
Metoprolol Succinate 50 mg 02/04/25 14:29 02/05/25 08:29
Metoprolol 50 Mg Extended Release Tablet PO 03/04/25 14:28 50 mg
DAILY CARLOS A Administration
Rosuvastatin Calcium 20 mg 02/05/25 08:00 02/05/25 08:30
Rosuvastatin (Crestor) 20 Mg Tablet PO 03/05/25 07:59 20 mg
DAILY CARLOS A Administration
Sodium Chloride 0 flush 02/05/25 08:00
Sodium Chloride 0.9% (Flush) Syringe IV 03/05/25 07:59
PER PROTOCOL CARLOS A
Home Medications
-
Home Medications
cholecalciferol (vitamin D3) 50 mcg (2,000 unit) capsule (Vitamin D3) 2,000 unit PO DAILY 05/15/19
apixaban 5 mg tablet (Eliquis) 5 mg PO BID ##0 06/06/19
metoprolol succinate 50 mg tablet,extended release 24 hr (Toprol XL) 50 mg PO DAILY #30 tabs 12/29/23
acetaminophen 650 mg tablet,extended release 1,300 mg PO [id number] PRN mild pain 02/04/25
escitalopram oxalate 5 mg tablet (Lexapro) 5 mg PO HS 02/04/25
levothyroxine 88 mcg tablet (Synthroid) 88 mcg PO DAILY 02/04/25
losartan 50 mg tablet 50 mg PO BID 02/04/25
methylprednisolone 4 mg tablets in a dose pack (Medrol (Sean)) 0 mg PO PER PKG DIR 02/04/25
rosuvastatin 10 mg tablet (Crestor) 10 mg PO DAILY 02/04/25
[2025-02-05] MEDS: LOW STRENGTH ASPIRIN 81 MG PO (08:29)
[2025-02-05] MEDS: TOPROL XL 50 MG PO (08:29)
[2025-02-05] MEDS: COZAAR 50 MG PO (08:29)
[2025-02-05] MEDS: SOLU-MEDROL 58 MG IV (08:30)
[2025-02-05] MEDS: CRESTOR 20 MG PO (08:30)
[2025-02-05] MEDS: VITAMIN D3 (cholecalciferol) 50 MCG PO (08:30)
[2025-02-05 09:01] LABS: Erythrocyte Sed Rate 2 mm/hour (0-20)
--- NOTE | 2025-02-05 09:59 | PTOTSP ---
Speech Therapy Evaluation:
Pt presents with functional oropharyngeal swallow at bedside. No oral impairments or s/sx of aspiration across trials. No predisposing risk factors of dysphagia, however acute risk factor includes large enhancing intramedullary lesion in C-spine
suggestive longitudinally extensive spinal cord lesion. Pt passed 3oz swallow screen and no hx of dysphagia/PNA.
Recommend:
1. Continue IDDSI Level 7 (regular) and thin liquids
2. Medications whole with thin liquids
3. General aspiration precautions
4. CARBON SEQUESTRATION PLANT OPERATOR to follow to monitor tolerance of diet and determine if pt would benefit from instrumental assessment
[2025-02-05 11:07] LABS: C-Reactive Protein < 5.00 mg/L (0.0-10.00)
[2025-02-05 12:45] LABS: Folate 11.8 ng/ml (2.76-20); Vitamin B12 392 pg/ml (239-931)
--- NOTE | 2025-02-05 15:19 | W.PN.HOSP.TC ---
Today's Communication/Plan
-
Assessment / Plan
Assessment / Plan
NAD
Scleral Anicteric
MMM
No JVD
CTABL
RRR, S1/S2
Soft, NT, ND, BS+
Warm, Dry
AAOx3, CN II to XII intact, movable, lvxrpr-fj-stzj movements intact, zdjy-un-hnrs intact, no pronator drift, 5/5 motor strength in bilateral upper and lower extremities
Calm
C2-C4 intrinsic myelopathy although unclear as to etiology as potential causes could be autoimmune inflammatory demyelinating less likely vascular or infectious neoplastic per neurology
IR consult for CSF studies
Myelopathy serologies ordered
Thoracic spine MRI ordered per neurology
Steroids�high-dose ordered by neurology
PT/OT
Atrial fibrillation�paroxysmal
Currently in sinus rhythm
Hold Eliquis in the off chance this is a stroke to prevent hemorrhagic conversion
Continue beta-rosario
Hypothyroidism
Continue Synthroid
Hypertension
Continue antihypertensive
Depression
Continue antidepressives
Anticipated Discharge: > 48 hours
Subjective/Interval History
-
Date of Service: February 05, 2025
Seen and examined. No new complaints. No acute overnight events.
Reviewed MRI findings with her. No stroke on MRI brain however noted to have 4.4 cm cervical spine lesion unclear as to etiology. Neurology started IV steroids for treatment of transverse myelitis
Objective Data
-
Vital Signs:
Vital Signs
Temp Pulse Resp BP Pulse Ox
98.2 F 68 15 137/83 94
02/05/25 14:45 02/05/25 14:45 02/05/25 14:45 02/05/25 14:45 02/05/25 14:45
I&O
02/04/25 02/05/25 02/06/25
06:59 06:59 06:59
Output Total 1949
Balance -1949 -1949
--- NOTE | 2025-02-05 15:21 | PTCARENOTE ---
Pt has not voided in over 6 hours. I advised the MD and asked for an order for castañeda placement due to this being the 3rd time she has had retention and holding > 1000ml. Order placed, 16Fr castañeda placed without incident. initial void amt 850, then pt
went to IR for LP.
[2025-02-05 16:26] LABS: Spinal Fluid Glucose 61 mg/dl (40-70); Spinal Fluid Protein 76 mg/dl (12-60)
--- NOTE | 2025-02-05 16:41 | CM ---
Alert awake oriented patient who lives with her Kel in a 1 story home with 1 step to enter. She is independent in [facility] of daily living.She does drive .She uses no DME .She has a sleeve on left arm for lymphedema.PT OT ordered.
Had [facility] in past . No SNF hx
Ph[facility]acy [facility]
PCP Dr Spencer
PLAN Probable rehab PT Ot ordered
[2025-02-05 16:48] LABS: CSF Color Colorless; CSF Tube # 4; CSF Tube # Clarity Clear
[2025-02-05 16:49] LABS: CSF Clarity Clear; CSF Color Colorless; CSF Tube # 1; Red Cell Count/CSF 415 mm^3; Red Cell Count/CSF 59 mm^3; White Blood Cell Count/CSF 0 mm^3 (0-5); White Cell Count/CSF 4 mm^3 (0-5)
[2025-02-05] MEDS: COZAAR PO (21:14)
[2025-02-05] MEDS: LEXAPRO 5 MG PO (21:15)
[2025-02-05] MEDS: LIDOCAINE 4% PATCH 1 PATCH TOPICAL (22:03)
[2025-02-06] VITALS (8 sets, daily range): BP systolic 107–128; BP diastolic 60–69; PULSE 68–72; O2SAT 95–97
[2025-02-06] MEDS: TYLENOL 650 MG PO ×3 (02:50→17:56)
[2025-02-06] MEDS: SYNTHROID 88 MCG PO (05:45)
[2025-02-06] MEDS: VITAMIN D3 (cholecalciferol) 50 MCG PO (08:57)
[2025-02-06] MEDS: LOW STRENGTH ASPIRIN 81 MG PO (08:57)
[2025-02-06] MEDS: TOPROL XL 50 MG PO (08:57)
[2025-02-06] MEDS: SOLU-MEDROL 58 MG IV (08:57)
[2025-02-06] MEDS: COZAAR PO (08:57)
[2025-02-06] MEDS: CRESTOR 20 MG PO (08:57)
--- NOTE | 2025-02-06 10:39 | W.PN.NEURO.1 ---
Today's Communication / Plan
-
.
Subjective/Objective
Subjective Data
Date of Service: February 06, 2025
Neurology follow-up note.
Ms. Stephens states that she was able to stand on her feet without her legs not buckling today. Continues to have proximal arm and leg weakness.
No reports of headaches post LP
CSF(normal OP 15, CP�12 cm of water; 0 WBCs, RBCs�59, glucose�61, total protein�76,
Labs: Vitamin B12�392, folate�normal
C-spine MRI with and without keri�C2, C3, and C4 enhancing 4.4 cm intramedullary lesion, severe DJD.
Brain MRI with and without keri�no acute infarct or enhancement.
PMH: A-fib, HTN, DLP, L breast adenocarcinoma(status post chemo and RT), hypothyroidism, L arm lymphedema, vitamin D deficiency, OA, KERI
PSH: L mastectomy/axillary nerve dissection(2010), bilateral cataract extraction, tubal ligation, Bl TKA,
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
FH: father, brother�A-fib, mother BRCA/breast cancer
All: ACEIs
ROS: Constitutional: Negative. Negative for chills, fever and unexpected weight change.
HENT: Negative for ear pain, hearing loss, tinnitus and trouble swallowing.
Eyes: Negative. Negative for photophobia, pain and visual disturbance.
Respiratory: Negative for cough, choking and shortness of breath.
Cardiovascular: Negative for chest pain, palpitations and leg swelling.
Gastrointestinal: Negative for abdominal pain and vomiting.
Endocrine: Negative. Negative for cold intolerance.
Genitourinary: Negative for dysuria, flank pain and urgency.
Musculoskeletal: positive for neck pain
Skin: Negative for rash.
Allergic/Immunologic: Negative. Negative for immunocompromised state.
Neurological: Positive for left arm weakness and paresthesias
Psychiatric/Behavioral: Negative for behavioral problems, confusion and hallucinations.
General: Well developed. In no acute distress.
Cardio: Regular rate and rhythm without murmur. Extremities are without cyanosis or edema.
Neuro:
Mental Status: Alert, oriented to person, place, and date. Minimally impaired attention and recall. Good fund of knowledge. Follows complex requests across the midline. Comprehension, naming, and repetition intact.
Cranial Nerves: Pupils are equally round, surgical EOMs full. Visual stevens full to confrontation. No ptosis. No nystagmus. V1-V3 intact to light touch and pinprick bilaterally, symmetric. Face symmetric. Reduced hearing on the left. The
palate elevated well. SCMs and traps 5/5. Tongue midline. No dysarthria.
Motor: Strength is 5 out of 5 except for bilateral dense 4 out of 5, bilateral biceps 4+ out of 5
Sensory: Absent vibration at the toes and ankles and preserved at the knees
Reflexes: 1+ R biceps, limited exam of the left upper extremity due to compression sleeve. Negative Rachel's bilaterally. Negative clonus of the ankles
Sensory: Absent vibration in the toes and ankles (chronic)
Coordination: No dysmetria or tremor. No extinction to DSS
Gait: deferred
Assessment and Plan:
I. C2-C4 intrinsic myelopathy. Differential diagnosis includes autoimmune vs inflammatory vs demyelinating, less likely vascular, infectious or neoplastic.
II. PA A-fib
III. Chronic toxic polyneuropathy.
IV. Stage III left breast cancer, status post remote RT
- Continue Telemetry monitoring
- Fall and aspiration precautions
- Please obtain T-spine MRI with and without keri
- Follow-up CSF and serology tests
- Restart Eliquis
- Continue methylprednisone 500 mg once a day for 1 more dose
- Voiding trial
- PT
- Mechanical and chemical DVT prophylaxis
- DVT prophylaxis
I personally reviewed all radiology and labs along with past medical records pertinent to current medical problems. Total time spent in patient care is 40 minutes
Objective Data
Vital Signs
Temp Pulse Resp BP Pulse Ox
36.6 C 66 16 112/68 98
02/06/25 07:10 02/06/25 07:10 02/06/25 07:10 02/06/25 07:10 02/06/25 07:10
Lab Results
02/04/25 10:00
02/04/25 10:00
PT 15.0 Sec (11.4-14.6) H 02/04/25 10:00
INR 1.15 02/04/25 10:00
APTT 28.8 Sec (23.4-35.0) 02/04/25 10:00
Sodium 138 mmol/L (135-145) 02/04/25 10:00
Potassium 3.7 mmol/L (3.5-5.1) 02/04/25 10:00
BUN 15 mg/dl (7-17) 02/04/25 10:00
Glucose 116 mg/dl (70-99) H 02/04/25 10:00
Calcium 9.7 mg/dl (8.4-10.2) 02/04/25 10:00
LDL Cholesterol, Calc 61 mg/dl 02/05/25 05:44
Vitamin B12 392 pg/ml (239-931) 02/05/25 09:17
Patient Allergies
lisinopril Adverse Reaction (Verified 12/29/23 06:33)
cough
Vital Signs and Labs
-
Vital Signs and Labs:
Vital Signs
Temp Pulse Resp BP Pulse Ox
36.6 C 66 16 112/68 98
02/06/25 07:10 02/06/25 07:10 02/06/25 07:10 02/06/25 07:10 02/06/25 07:10
Lab Results
02/04/25 10:00
02/04/25 10:00
PT 15.0 Sec (11.4-14.6) H 02/04/25 10:00
INR 1.15 02/04/25 10:00
APTT 28.8 Sec (23.4-35.0) 02/04/25 10:00
Sodium 138 mmol/L (135-145) 02/04/25 10:00
Potassium 3.7 mmol/L (3.5-5.1) 02/04/25 10:00
BUN 15 mg/dl (7-17) 02/04/25 10:00
Glucose 116 mg/dl (70-99) H 02/04/25 10:00
Calcium 9.7 mg/dl (8.4-10.2) 02/04/25 10:00
LDL Cholesterol, Calc 61 mg/dl 02/05/25 05:44
Vitamin B12 392 pg/ml (239-931) 02/05/25 09:17
Medications
-
Medications:
Generic Name Dose Route Start Last Admin
Trade Name Freq PRN Reason Stop Dose Admin
Acetaminophen 650 mg 02/04/25 14:29
Acetaminophen 650 Mg Rectal Suppository RECTAL 03/04/25 14:28
Q4HPRN PRN
PEREZ, mild pain, or temp >100.4F
Acetaminophen 650 mg 02/04/25 14:29 02/06/25 08:56
Acetaminophen 325 Mg Tablet PO 03/04/25 14:28 650 mg
Q4HPRN PRN Administration
PEREZ, mild pain, or temp >100.4F
Apixaban 5 mg 02/06/25 10:45
Apixaban (Eliquis) 5 Mg Tablet PO 03/06/25 10:44
BID CARLOS A
Cholecalciferol 50 mcg 02/05/25 08:00 02/06/25 08:57
Cholecalciferol (Vitamin D3) 50 Mcg Tablet (2,000 Units) PO 03/05/25 07:59 50 mcg
DAILY CARLOS A Administration
Escitalopram Oxalate 5 mg 02/04/25 22:00 02/05/25 21:15
Escitalopram 5 Mg Tablet PO 03/04/25 21:59 5 mg
HS CARLOS A Administration
Methylprednisolone Sodium 58 mls @ 100 mls/hr 02/05/25 08:00 02/06/25 08:57
Succinate 500 mg/ Sodium IV 03/05/25 07:59 58 mls
Chloride Q24H CARLOS A Administration
Levothyroxine Sodium 88 mcg 02/05/25 06:00 02/06/25 05:45
Levothyroxine 88 Mcg Tablet PO 03/05/25 05:59 88 mcg
DAILY@0600 CARLOS A Administration
Lidocaine 1 patch 02/05/25 22:00 02/05/25 22:03
Lidocaine 4% Topical Patch TOPICAL 03/05/25 21:59 1 patch
DAILY@2200 CARLOS A Administration
Protocol
Losartan Potassium 50 mg 02/04/25 20:00 02/06/25 08:57
Losartan 50 Mg Tablet PO 03/04/25 19:59 Not Given
BID CARLOS A
Metoprolol Succinate 50 mg 02/04/25 14:29 02/06/25 08:57
Metoprolol 50 Mg Extended Release Tablet PO 03/04/25 14:28 50 mg
DAILY CARLOS A Administration
Rosuvastatin Calcium 20 mg 02/05/25 08:00 02/06/25 08:57
Rosuvastatin (Crestor) 20 Mg Tablet PO 03/05/25 07:59 20 mg
DAILY CARLOS A Administration
Sodium Chloride 0 flush 02/05/25 08:00
Sodium Chloride 0.9% (Flush) Syringe IV 03/05/25 07:59
PER PROTOCOL CARLOS A
Home Medications
-
Home Medications
cholecalciferol (vitamin D3) 50 mcg (2,000 unit) capsule (Vitamin D3) 2,000 unit PO DAILY 05/15/19
apixaban 5 mg tablet (Eliquis) 5 mg PO BID ##0 06/06/19
metoprolol succinate 50 mg tablet,extended release 24 hr (Toprol XL) 50 mg PO DAILY #30 tabs 12/29/23
acetaminophen 650 mg tablet,extended release 1,300 mg PO [id number] PRN mild pain 02/04/25
escitalopram oxalate 5 mg tablet (Lexapro) 5 mg PO HS 02/04/25
levothyroxine 88 mcg tablet (Synthroid) 88 mcg PO DAILY 02/04/25
losartan 50 mg tablet 50 mg PO BID 02/04/25
methylprednisolone 4 mg tablets in a dose pack (Medrol (Sean)) 0 mg PO PER PKG DIR 02/04/25
rosuvastatin 10 mg tablet (Crestor) 10 mg PO DAILY 02/04/25
[2025-02-06] MEDS: ELIQUIS 5 MG PO ×2 (10:55→19:44)
[2025-02-06 12:11] LABS: Lyme Antibody Screen, EIA Negative (Negative)
--- NOTE | 2025-02-06 12:39 | W.PN.HOSP.TC ---
Today's Communication/Plan
-
Assessment / Plan
Assessment / Plan
NAD
Scleral Anicteric
MMM
No JVD
CTABL
RRR, S1/S2
Soft, NT, ND, BS+
Warm, Dry
AAOx3, CN II to XII intact, movable, epcrkb-di-mbft movements intact, bvhk-qp-fkgp intact, no pronator drift, 5/5 motor strength in bilateral upper and lower extremities
Calm
C2-C4 intrinsic myelopathy although unclear as to etiology as potential causes could be autoimmune inflammatory demyelinating less likely vascular or infectious neoplastic per neurology
LP completed, initial results rather benign, rest labs are pending
Myelopathy serologies ordered
Thoracic spine MRI ordered per neurology
Steroids�high-dose ordered by neurology
PT/OT following
Atrial fibrillation�paroxysmal
Currently in sinus rhythm
Hold Eliquis in the off chance this is a stroke to prevent hemorrhagic conversion
Continue beta-rosario
Hypothyroidism
Continue Synthroid
Hypertension
Continue antihypertensive
Depression
Continue antidepressives
Anticipated Discharge: > 48 hours
Subjective/Interval History
-
Date of Service: February 06, 2025
seen and examined. no new complaints. no acute overnight events
Objective Data
-
Vital Signs:
Vital Signs
Temp Pulse Resp BP Pulse Ox
98.1 F 62 16 111/63 96
02/06/25 11:10 02/06/25 11:10 02/06/25 11:10 02/06/25 11:10 02/06/25 11:10
I&O
02/05/25 02/06/25 02/07/25
06:59 06:59 06:59
Intake Total 174 / 1740
Output Total 1949 3150 / 3150
Balance -1949 / -141 / -1410
[2025-02-06] MEDS: COZAAR 50 MG PO (19:44)
[2025-02-06] MEDS: LEXAPRO 5 MG PO (22:48)
[2025-02-06] MEDS: LIDOCAINE 4% PATCH 1 PATCH TOPICAL (22:48)
[2025-02-07] VITALS (7 sets, daily range): BP systolic 103–142; BP diastolic 55–80
[2025-02-07] MEDS: SYNTHROID 88 MCG PO (05:23)
[2025-02-07] MEDS: ELIQUIS 5 MG PO ×2 (09:27→19:45)
[2025-02-07] MEDS: COZAAR 50 MG PO ×2 (09:28→19:46)
[2025-02-07] MEDS: SOLU-MEDROL 58 MG IV (09:28)
[2025-02-07] MEDS: CRESTOR 20 MG PO (09:28)
[2025-02-07] MEDS: TOPROL XL 50 MG PO (09:28)
[2025-02-07] MEDS: VITAMIN D3 (cholecalciferol) 50 MCG PO (09:29)
--- NOTE | 2025-02-07 10:28 | W.PN.NEURO.1 ---
Today's Communication / Plan
-
.
Subjective/Objective
Subjective Data
Date of Service: February 07, 2025
Neurology follow-up note.
Ms. Stephens continues to have bilateral proximal arm weakness and clumsiness. She is struggling with writing and using her cell phone. Neck pain has improved with lidocaine patch and cold compresses.
No reports of change in vision, swallowing with speech.
Continues to have Ray for urinary retention
C-spine MRI with and without keri�C2, C3, and C4 enhancing 4.4 cm intramedullary lesion, severe DJD.
Brain MRI with and without keri�no acute infarct or enhancement.
T spine MRI w/wo keri(02/06/2025) mild to moderate diffuse thoracic cord atrophy, T9/T10 herniation, T8/T9 syrinx, no pathology for cord enhancement, thyroid gland nodule,
Labs: Lyme screen�negative.
PMH: A-fib, HTN, DLP, L breast adenocarcinoma(status post chemo and RT), hypothyroidism, L arm lymphedema, vitamin D deficiency, OA, KERI
PSH: L mastectomy/axillary nerve dissection(2010), bilateral cataract extraction, tubal ligation, Bl TKA,
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
FH: father, brother�A-fib, mother BRCA/breast cancer
All: ACEIs
ROS: Constitutional: Negative. Negative for chills, fever and unexpected weight change.
HENT: Negative for ear pain, hearing loss, tinnitus and trouble swallowing.
Eyes: Negative. Negative for photophobia, pain and visual disturbance.
Respiratory: Negative for cough, choking and shortness of breath.
Cardiovascular: Negative for chest pain, palpitations and leg swelling.
Gastrointestinal: Negative for abdominal pain and vomiting.
Endocrine: Negative. Negative for cold intolerance.
Genitourinary: Negative for dysuria, flank pain and urgency.
Musculoskeletal: positive for neck pain
Skin: Negative for rash.
Allergic/Immunologic: Negative. Negative for immunocompromised state.
Neurological: Positive for left arm weakness and paresthesias
Psychiatric/Behavioral: Negative for behavioral problems, confusion and hallucinations.
General: Well developed. In no acute distress.
Cardio: Regular rate and rhythm without murmur. Extremities are without cyanosis or edema.
Neuro:
Mental Status: Alert, oriented to person, place, and date. Minimally impaired attention and recall. Good fund of knowledge. Follows complex requests across the midline. Comprehension, naming, and repetition intact.
Cranial Nerves: Pupils are equally round, surgical EOMs full. Visual stevens full to confrontation. No ptosis. No nystagmus. V1-V3 intact to light touch and pinprick bilaterally, symmetric. Face symmetric. Reduced hearing on the left. The
palate elevated well. SCMs and traps 5/5. Tongue midline. No dysarthria.
Motor: Strength is 5 out of 5 except for bilateral dense 4 out of 5, bilateral biceps 4+ out of 5
Sensory: Absent vibration at the toes and ankles and preserved at the knees
Reflexes: 1+ R biceps, limited exam of the left upper extremity due to compression sleeve. Negative Rachel's bilaterally. Negative clonus of the ankles
Sensory: Absent vibration in the toes and ankles (chronic)
Coordination: No dysmetria or tremor. No extinction to DSS
Gait: deferred
Assessment and Plan:
I. C2-C4 intrinsic myelopathy. Differential diagnosis includes autoimmune vs inflammatory vs demyelinating, less likely vascular, infectious or neoplastic.
II. T8-T9 syrinx/thoracic cord atrophy
III. Chronic toxic polyneuropathy.
IV. Stage III left breast cancer, status post remote RT
V. T9/T10 disc herniation
- Continue Telemetry monitoring
- Follow-up CSF and serology tests
- Continue Eliquis for stroke prevention
- Continue methylprednisone 500 mg daily for 2 more doses with GI prophylaxis
- PT
- Mechanical and chemical DVT prophylaxis
I personally reviewed all radiology and labs along with past medical records pertinent to current medical problems. Total time spent in patient care is 40 minutes
Objective Data
Vital Signs
Temp Pulse Resp BP Pulse Ox
36.7 C 67 18 138/70 97
02/07/25 07:10 02/07/25 09:28 02/07/25 07:10 02/07/25 09:28 02/07/25 07:10
Lab Results
02/04/25 10:00
02/04/25 10:00
PT 15.0 Sec (11.4-14.6) H 02/04/25 10:00
INR 1.15 02/04/25 10:00
APTT 28.8 Sec (23.4-35.0) 02/04/25 10:00
Sodium 138 mmol/L (135-145) 02/04/25 10:00
Potassium 3.7 mmol/L (3.5-5.1) 02/04/25 10:00
BUN 15 mg/dl (7-17) 02/04/25 10:00
Glucose 116 mg/dl (70-99) H 02/04/25 10:00
Calcium 9.7 mg/dl (8.4-10.2) 02/04/25 10:00
LDL Cholesterol, Calc 61 mg/dl 02/05/25 05:44
Vitamin B12 392 pg/ml (239-931) 02/05/25 09:17
Patient Allergies
lisinopril Adverse Reaction (Verified 12/29/23 06:33)
cough
Vital Signs and Labs
-
Vital Signs and Labs:
Vital Signs
Temp Pulse Resp BP Pulse Ox
36.9 C 68 18 142/80 97
02/07/25 11:06 02/07/25 11:06 02/07/25 11:06 02/07/25 11:06 02/07/25 11:06
Lab Results
02/04/25 10:00
02/04/25 10:00
PT 15.0 Sec (11.4-14.6) H 02/04/25 10:00
INR 1.15 02/04/25 10:00
APTT 28.8 Sec (23.4-35.0) 02/04/25 10:00
Sodium 138 mmol/L (135-145) 02/04/25 10:00
Potassium 3.7 mmol/L (3.5-5.1) 02/04/25 10:00
BUN 15 mg/dl (7-17) 02/04/25 10:00
Glucose 116 mg/dl (70-99) H 02/04/25 10:00
Calcium 9.7 mg/dl (8.4-10.2) 02/04/25 10:00
LDL Cholesterol, Calc 61 mg/dl 02/05/25 05:44
Vitamin B12 392 pg/ml (239-931) 02/05/25 09:17
Medications
-
Medications:
Generic Name Dose Route Start Last Admin
Trade Name Freq PRN Reason Stop Dose Admin
Acetaminophen 650 mg 02/04/25 14:29
Acetaminophen 650 Mg Rectal Suppository RECTAL 03/04/25 14:28
Q4HPRN PRN
PEREZ, mild pain, or temp >100.4F
Acetaminophen 650 mg 02/04/25 14:29 02/06/25 17:56
Acetaminophen 325 Mg Tablet PO 03/04/25 14:28 650 mg
Q4HPRN PRN Administration
PEREZ, mild pain, or temp >100.4F
Apixaban 5 mg 02/06/25 10:45 02/07/25 09:27
Apixaban (Eliquis) 5 Mg Tablet PO 03/06/25 10:44 5 mg
BID CARLOS A Administration
Cholecalciferol 50 mcg 02/05/25 08:00 02/07/25 09:29
Cholecalciferol (Vitamin D3) 50 Mcg Tablet (2,000 Units) PO 03/05/25 07:59 50 mcg
DAILY CARLOS A Administration
Escitalopram Oxalate 5 mg 02/04/25 22:00 02/06/25 22:48
Escitalopram 5 Mg Tablet PO 03/04/25 21:59 5 mg
HS CARLOS A Administration
Methylprednisolone Sodium 58 mls @ 100 mls/hr 02/05/25 08:00 02/07/25 09:28
Succinate 500 mg/ Sodium IV 03/05/25 07:59 58 mls
Chloride Q24H CARLOS A Administration
Levothyroxine Sodium 88 mcg 02/05/25 06:00 02/07/25 05:23
Levothyroxine 88 Mcg Tablet PO 03/05/25 05:59 88 mcg
DAILY@0600 CARLOS A Administration
Lidocaine 1 patch 02/05/25 22:00 02/06/25 22:48
Lidocaine 4% Topical Patch TOPICAL 03/05/25 21:59 1 patch
DAILY@2200 CARLOS A Administration
Protocol
Losartan Potassium 50 mg 02/04/25 20:00 02/07/25 09:28
Losartan 50 Mg Tablet PO 03/04/25 19:59 50 mg
BID CARLOS A Administration
Metoprolol Succinate 50 mg 02/04/25 14:29 02/07/25 09:28
Metoprolol 50 Mg Extended Release Tablet PO 03/04/25 14:28 50 mg
DAILY CARLOS A Administration
Pantoprazole Sodium 40 mg 02/07/25 10:00
Pantoprazole 40 Mg Delayed Release Tablet PO 03/07/25 09:59
DAILY CARLOS A
Rosuvastatin Calcium 20 mg 02/05/25 08:00 02/07/25 09:28
Rosuvastatin (Crestor) 20 Mg Tablet PO 03/05/25 07:59 20 mg
DAILY CARLOS A Administration
Sodium Chloride 0 flush 02/05/25 08:00
Sodium Chloride 0.9% (Flush) Syringe IV 03/05/25 07:59
PER PROTOCOL CARLOS A
Home Medications
-
Home Medications
cholecalciferol (vitamin D3) 50 mcg (2,000 unit) capsule (Vitamin D3) 2,000 unit PO DAILY 05/15/19
apixaban 5 mg tablet (Eliquis) 5 mg PO BID ##0 06/06/19
metoprolol succinate 50 mg tablet,extended release 24 hr (Toprol XL) 50 mg PO DAILY #30 tabs 12/29/23
acetaminophen 650 mg tablet,extended release 1,300 mg PO [id number] PRN mild pain 02/04/25
escitalopram oxalate 5 mg tablet (Lexapro) 5 mg PO HS 02/04/25
levothyroxine 88 mcg tablet (Synthroid) 88 mcg PO DAILY 02/04/25
losartan 50 mg tablet 50 mg PO BID 02/04/25
methylprednisolone 4 mg tablets in a dose pack (Medrol (Sean)) 0 mg PO PER PKG DIR 02/04/25
rosuvastatin 10 mg tablet (Crestor) 10 mg PO DAILY 02/04/25
[2025-02-07 11:38] LABS: Syphilis/T. pallidum Ab Reflex Negative (Negative)
[2025-02-07] MEDS: PROTONIX 40 MG PO (13:11)
--- NOTE | 2025-02-07 13:24 | W.PN.HOSP.TC ---
Today's Communication/Plan
-
Assessment / Plan
Assessment / Plan
NAD
Scleral Anicteric
MMM
No JVD
CTABL
RRR, S1/S2
Soft, NT, ND, BS+
Warm, Dry
AAOx3, CN II to XII intact, movable, hswols-mx-zvsn movements intact, ibwg-fk-azhl intact, no pronator drift, 5/5 motor strength in bilateral upper and lower extremities
Calm
C2-C4 intrinsic myelopathy although unclear as to etiology as potential causes could be autoimmune inflammatory demyelinating less likely vascular or infectious neoplastic per neurology
LP completed, initial results rather benign, rest labs are pending
Myelopathy serologies ordered
Thoracic spine MRI ordered per neurology
Steroids�high-dose ordered by neurology
PT/OT following
Atrial fibrillation�paroxysmal
Currently in sinus rhythm
Resumed Eliquis
Continue beta-rosario
Hypothyroidism
Continue Synthroid
Hypertension
Continue antihypertensive
Depression
Continue antidepressives
Anticipated Discharge: > 48 hours
Subjective/Interval History
-
Date of Service: February 07, 2025
Seen and examined. no new complaints. no acute overnight events
Feels as though bilateral upper extremities are more heavy today
Objective Data
-
Vital Signs:
Vital Signs
Temp Pulse Resp BP Pulse Ox
98.4 F 68 18 142/80 97
02/07/25 11:06 02/07/25 11:06 02/07/25 11:06 02/07/25 11:06 02/07/25 11:06
I&O
02/06/25 02/07/25 02/08/25
06:59 06:59 06:59
Intake Total 1740 / 1740 2280 / 2280
Output Total 3150 / 3150 4000 / 4000
Balance -1410 / -1410 -1720 / -1720
--- NOTE | 2025-02-07 17:06 | CM ---
PT OT indicate acute rehab.
Spoke with pt in room .
She requested a referral for [facility]. referral placed.
Spoke with Josh Arango [phone] she said she would look at referral.
PLAN To acute rehab after accepted
[2025-02-07] MEDS: LIDOCAINE 4% PATCH 1 PATCH TOPICAL (21:58)
[2025-02-07] MEDS: LEXAPRO 5 MG PO (21:59)
[2025-02-08 00:37] LABS: Angiotensin-1- Converting, CSF 2.7 U/L (0.0-2.5)
[2025-02-08 01:01] LABS: HTLV I/II Antibodies Negative (Negative)
[2025-02-08 03:06] LABS: Angiotensin-1-converting Enzym 24 U/L (16-85)
[2025-02-08 03:40] VITALS: BP 137/71
[2025-02-08 05:48] LABS: ANA, IgG Reflex to HEp-2 Detected (None Detected)
[2025-02-08] MEDS: SYNTHROID 88 MCG PO (05:55)
[2025-02-08 06:07] LABS: Hematocrit 39.9 % (37.0-47.0); Hemoglobin 13.8 g/dL (12.0-16.0); Mean Corp Hgb Conc. 34.6 g/dL (33.0-37.0); Mean Corpuscular Hgb 31.2 pg (27.0-31.0); Mean Corpuscular Volume 90.1 fL (81.0-99.0); Mean Platelet Volume 9.1 fL (7.4-10.4); Platelet Count 283 10^3/uL (130-400); Red Blood Cell Count 4.43 10^6/uL (4.20-5.40); White Blood Cell Count 15.9 10^3/uL (4.8-10.8)
[2025-02-08 06:37] LABS: Blood Urea Nitrogen 25 mg/dl (7-17); Calcium 9.4 mg/dl (8.4-10.2); Carbon Dioxide 23 mmol/L (22-30); Chloride 108 mmol/L (98-107); Estimated Creatinine Clearance 69 ml/min; Glucose 98 mg/dl (70-99); Potassium 4.7 mmol/L (3.5-5.1); Sodium 140 mmol/L (135-145); eGFR > 60.00
[2025-02-08 08:27] VITALS: BP 111/81
--- NOTE | 2025-02-08 08:48 | W.PN.NEURO.1 ---
Today's Communication / Plan
-
.
Subjective/Objective
Subjective Data
Date of Service: February 08, 2025
Neurology follow-up note.
Ms. Stephens states that she is no longer having neck pain. Her weakness and incoordination has been stable.
Ray catheter has been removed in the morning. No reports of visual changes, dysphagia or dysarthria.
C-spine MRI with and without keri�C2, C3, and C4 enhancing 4.4 cm intramedullary lesion, severe DJD.
Brain MRI with and without keri�no acute infarct or enhancement.
T spine MRI w/wo keri(02/06/2025) mild to moderate diffuse thoracic cord atrophy, T9/T10 herniation, T8/T9 syrinx, no pathology for cord enhancement, thyroid gland nodule,
Labs: RODRIGO�positive, CSF LULI�2.7 (0�2.5)
PMH: A-fib, HTN, DLP, L breast adenocarcinoma(status post chemo and RT), hypothyroidism, L arm lymphedema, vitamin D deficiency, OA, KERI
PSH: L mastectomy/axillary nerve dissection(2010), bilateral cataract extraction, tubal ligation, Bl TKA,
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
FH: father, brother�A-fib, mother BRCA/breast cancer
All: ACEIs
ROS: Constitutional: Negative. Negative for chills, fever and unexpected weight change.
HENT: Negative for ear pain, hearing loss, tinnitus and trouble swallowing.
Eyes: Negative. Negative for photophobia, pain and visual disturbance.
Respiratory: Negative for cough, choking and shortness of breath.
Cardiovascular: Negative for chest pain, palpitations and leg swelling.
Gastrointestinal: Negative for abdominal pain and vomiting.
Endocrine: Negative. Negative for cold intolerance.
Genitourinary: Negative for dysuria, flank pain and urgency.
Musculoskeletal: positive for neck pain
Skin: Negative for rash.
Allergic/Immunologic: Negative. Negative for immunocompromised state.
Neurological: Positive for left arm weakness and paresthesias
Psychiatric/Behavioral: Negative for behavioral problems, confusion and hallucinations.
General: Well developed. In no acute distress.
Cardio: Regular rate and rhythm without murmur. Extremities are without cyanosis or edema.
Neuro:
Mental Status: Alert, oriented to person, place, and date. Minimally impaired attention and recall. Good fund of knowledge. Follows complex requests across the midline. Comprehension, naming, and repetition intact.
Cranial Nerves: Pupils are equally round, surgical EOMs full. Visual stevens full to confrontation. No ptosis. No nystagmus. V1-V3 intact to light touch and pinprick bilaterally, symmetric. Face symmetric. Reduced hearing on the left. The
palate elevated well. SCMs and traps 5/5. Tongue midline. No dysarthria.
Motor: Strength is 5 out of 5 except for bilateral dense 4 out of 5, bilateral biceps 4+ out of 5
Sensory: Absent vibration at the toes and ankles and preserved at the knees
Reflexes: 1+ R biceps, limited exam of the left upper extremity due to compression sleeve. Negative Rachel's bilaterally. Negative clonus of the ankles
Sensory: Absent vibration in the toes and ankles (chronic)
Coordination: No dysmetria or tremor. No extinction to DSS
Gait: deferred
Assessment and Plan:
I. C2-C4 intrinsic myelopathy. Clinical stable. Minimally elevated CSF LULI.
II. T8-T9 syrinx/thoracic cord atrophy
III. Chronic toxic polyneuropathy.
IV. Stage III left breast cancer, status post remote RT
V. T9/T10 disc herniation
- Continue Telemetry monitoring
- Follow-up CSF and serology tests
- Continue Eliquis for stroke prevention
- Continue methylprednisone 500 mg daily for 1 more dose with GI prophylaxis
- PT
- Mechanical DVT prophylaxis
I personally reviewed all radiology and labs along with past medical records pertinent to current medical problems. Total time spent in patient care is 40 minutes
Objective Data
Vital Signs
Temp Pulse Resp BP Pulse Ox
36.8 C 70 18 111/81 97
02/08/25 08:27 02/08/25 08:27 02/08/25 08:27 02/08/25 08:27 02/08/25 08:27
Lab Results
02/08/25 05:56
02/08/25 05:56
PT 15.0 Sec (11.4-14.6) H 02/04/25 10:00
INR 1.15 02/04/25 10:00
APTT 28.8 Sec (23.4-35.0) 02/04/25 10:00
Sodium 140 mmol/L (135-145) 02/08/25 05:56
Potassium 4.7 mmol/L (3.5-5.1) 02/08/25 05:56
BUN 25 mg/dl (7-17) H 02/08/25 05:56
Glucose 98 mg/dl (70-99) 02/08/25 05:56
Calcium 9.4 mg/dl (8.4-10.2) 02/08/25 05:56
LDL Cholesterol, Calc 61 mg/dl 02/05/25 05:44
Vitamin B12 392 pg/ml (239-931) 02/05/25 09:17
Patient Allergies
lisinopril Adverse Reaction (Verified 12/29/23 06:33)
cough
Vital Signs and Labs
-
Vital Signs and Labs:
Vital Signs
Temp Pulse Resp BP Pulse Ox
36.8 C 70 18 111/81 97
02/08/25 08:27 02/08/25 08:27 02/08/25 08:27 02/08/25 08:27 02/08/25 08:27
Lab Results
02/08/25 05:56
02/08/25 05:56
PT 15.0 Sec (11.4-14.6) H 02/04/25 10:00
INR 1.15 02/04/25 10:00
APTT 28.8 Sec (23.4-35.0) 02/04/25 10:00
Sodium 140 mmol/L (135-145) 02/08/25 05:56
Potassium 4.7 mmol/L (3.5-5.1) 02/08/25 05:56
BUN 25 mg/dl (7-17) H 02/08/25 05:56
Glucose 98 mg/dl (70-99) 02/08/25 05:56
Calcium 9.4 mg/dl (8.4-10.2) 02/08/25 05:56
LDL Cholesterol, Calc 61 mg/dl 02/05/25 05:44
Vitamin B12 392 pg/ml (239-931) 02/05/25 09:17
Medications
-
Medications:
Generic Name Dose Route Start Last Admin
Trade Name Freq PRN Reason Stop Dose Admin
Acetaminophen 650 mg 02/04/25 14:29
Acetaminophen 650 Mg Rectal Suppository RECTAL 03/04/25 14:28
Q4HPRN PRN
PEREZ, mild pain, or temp >100.4F
Acetaminophen 650 mg 02/04/25 14:29 02/06/25 17:56
Acetaminophen 325 Mg Tablet PO 03/04/25 14:28 650 mg
Q4HPRN PRN Administration
PEREZ, mild pain, or temp >100.4F
Apixaban 5 mg 02/06/25 10:45 02/08/25 09:17
Apixaban (Eliquis) 5 Mg Tablet PO 03/06/25 10:44 5 mg
BID CARLOS A Administration
Cholecalciferol 50 mcg 02/05/25 08:00 02/08/25 09:18
Cholecalciferol (Vitamin D3) 50 Mcg Tablet (2,000 Units) PO 03/05/25 07:59 50 mcg
DAILY CARLOS A Administration
Escitalopram Oxalate 5 mg 02/04/25 22:00 02/07/25 21:59
Escitalopram 5 Mg Tablet PO 03/04/25 21:59 5 mg
HS CARLOS A Administration
Methylprednisolone Sodium 58 mls @ 100 mls/hr 02/05/25 08:00 02/08/25 09:17
Succinate 500 mg/ Sodium IV 03/05/25 07:59 58 mls
Chloride Q24H CARLOS A Administration
Levothyroxine Sodium 88 mcg 02/05/25 06:00 02/08/25 05:55
Levothyroxine 88 Mcg Tablet PO 03/05/25 05:59 88 mcg
DAILY@0600 CARLOS A Administration
Lidocaine 1 patch 02/05/25 22:00 02/07/25 21:58
Lidocaine 4% Topical Patch TOPICAL 03/05/25 21:59 1 patch
DAILY@2200 CALROS A Administration
Protocol
Losartan Potassium 50 mg 02/04/25 20:00 02/08/25 09:32
Losartan 50 Mg Tablet PO 03/04/25 19:59 Not Given
BID CARLOS A
Metoprolol Succinate 25 mg 02/08/25 08:00 02/08/25 09:17
Metoprolol 25 Mg Extended Release Tablet PO 03/08/25 07:59 25 mg
BID CARLOS A Administration
Pantoprazole Sodium 40 mg 02/07/25 10:00 02/08/25 09:17
Pantoprazole 40 Mg Delayed Release Tablet PO 03/07/25 09:59 40 mg
DAILY CARLOS A Administration
Patch Removal 1 patch 02/08/25 10:00 02/08/25 09:29
Remove Lidocaine Patch REMOVE 03/08/25 09:59 1 patch
DAILY@0800 CARLOS A Administration
Rosuvastatin Calcium 20 mg 02/05/25 08:00 02/08/25 09:17
Rosuvastatin (Crestor) 20 Mg Tablet PO 03/05/25 07:59 20 mg
DAILY CARLOS A Administration
Sodium Chloride 0 flush 02/05/25 08:00 02/08/25 09:17
Sodium Chloride 0.9% (Flush) Syringe IV 03/05/25 07:59 2 flush
PER PROTOCOL CARLOS A Administration
Home Medications
-
Home Medications
cholecalciferol (vitamin D3) 50 mcg (2,000 unit) capsule (Vitamin D3) 2,000 unit PO DAILY 05/15/19
apixaban 5 mg tablet (Eliquis) 5 mg PO BID ##0 06/06/19
metoprolol succinate 50 mg tablet,extended release 24 hr (Toprol XL) 50 mg PO DAILY #30 tabs 12/29/23
acetaminophen 650 mg tablet,extended release 1,300 mg PO [id number] PRN mild pain 02/04/25
escitalopram oxalate 5 mg tablet (Lexapro) 5 mg PO HS 02/04/25
levothyroxine 88 mcg tablet (Synthroid) 88 mcg PO DAILY 02/04/25
losartan 50 mg tablet 25 mg PO BID 02/04/25
methylprednisolone 4 mg tablets in a dose pack (Medrol (Sean)) 0 mg PO PER PKG DIR 02/04/25
rosuvastatin 10 mg tablet (Crestor) 10 mg PO DAILY 02/04/25
[2025-02-08] MEDS: TOPROL XL 25 MG PO ×2 (09:17→20:13)
[2025-02-08] MEDS: SOLU-MEDROL 58 MG IV (09:17)
[2025-02-08] MEDS: ELIQUIS 5 MG PO ×2 (09:17→20:13)
[2025-02-08] MEDS: CRESTOR 20 MG PO (09:17)
[2025-02-08] MEDS: FLUSH (NSS) 2 FLUSH IV (09:17)
[2025-02-08] MEDS: PROTONIX 40 MG PO (09:17)
[2025-02-08] MEDS: COZAAR PO ×3 (09:18→23:00)
[2025-02-08] MEDS: VITAMIN D3 (cholecalciferol) 50 MCG PO (09:18)
--- NOTE | 2025-02-08 10:06 | W.PN.HOSP.TC ---
Today's Communication/Plan
-
Assessment / Plan
Assessment / Plan
NAD
Scleral Anicteric
MMM
No JVD
CTABL
RRR, S1/S2
Soft, NT, ND, BS+
Warm, Dry
AAOx3, CN II to XII intact, movable, [id number] movements intact, [id number]-[id number] intact, no pronator drift, 5/5 motor strength in bilateral upper and lower extremities
Calm
C2-C4 intrinsic myelopathy although unclear as to etiology as potential causes could be autoimmune inflammatory demyelinating less likely vascular or infectious neoplastic per neurology
LP completed, initial results rather benign, rest labs are pending
Myelopathy serologies ordered
Thoracic spine MRI ordered per neurology
Steroids�high-dose 5-day course
PT/OT following recommend acute inpatient rehab.
Physiatry consulted on 02/09/2020
- [employer] [facility] messages sent to Dr. Black and Meagan Gil (02/08 at 1011am)
Atrial fibrillation�paroxysmal
Currently in sinus rhythm
Resumed Eliquis
Continue beta-rosario
Hypothyroidism
Continue Synthroid
Hypertension
Continue antihypertensive
Depression
Continue antidepressives
Anticipated Discharge: > 48 hours
Subjective/Interval History
-
Date of Service: February 08, 2025
Seen and examined. No new complaints. No acute overnight events.
States arm heaviness is improved
Still having difficulty ambulating
Objective Data
-
Labs:
Laboratory Results
02/08/25
05:56
WBC 15.9 H
Hgb 13.8
Hct 39.9
Plt Count 283
Sodium 140
Potassium 4.7
Chloride 108 H
Carbon Dioxide 23
BUN 25 H
Creatinine 0.7
Glucose 98
Calcium 9.4
Vital Signs:
Vital Signs
Temp Pulse Resp BP Pulse Ox
98.3 F 70 18 111/81 97
02/08/25 08:27 02/08/25 08:27 02/08/25 08:27 02/08/25 08:27 02/08/25 08:27
I&O
02/07/25 02/08/25 02/09/25
06:59 06:59 06:59
Intake Total 2280 / 2280 840 / 840
Output Total 4000 / 4000 2800 / 2800
Balance -1720 / -1720 -1959 / -1959
[2025-02-08 14:05] VITALS: BP 118/61
--- NOTE | 2025-02-08 16:05 | CHAP ---
Cora was calm and peaceful, accepting of her situation. Emotional and spiritual support provided.
[2025-02-08 17:15] VITALS: BP 95/54
[2025-02-08 18:47] LABS: CSF VDRL (T. pallidum) Non Reactive (Non Reactive)
[2025-02-08] MEDS: LIDOCAINE 4% PATCH TOPICAL (19:55)
[2025-02-08] MEDS: LEXAPRO 5 MG PO (20:13)
[2025-02-08 20:59] LABS: Albumin Index 7.8 ratio (0.0-9.0); Albumin, CSF 33 mg/dL (0-35); Albumin, Serum 4213 mg/dL (3500-5200); CSF IgG Synthesis Rate <0.0 mg/d (<=8.0); CSF IgG/Albumin Ratio 0.12 ratio (0.09-0.25); CSF Oligoclonal Bands Negative (Negative); CSF Oligoclonal Bands Number 0 Bands (0-1); IgG 1056 mg/dL (768-1632)
[2025-02-08 22:40] LABS: Urine Albumin Negative (Neg - Trace); Urine Bilirubin Negative (Negative); Urine Character Clear (Clear); Urine Color Yellow; Urine Glucose Negative (Negative); Urine Ketone Negative (Negative); Urine Leukocyte 2+ (Negative); Urine Nitrite Positive (Negative); Urine Occult Blood 3+ (Negative); Urine Urobilinogen Negative (Neg - 1+)
[2025-02-08 22:44] LABS: Urine Amorphous Seen; Urine Squamous Cell 0-2 /LPF (Few)
[2025-02-08 22:45] LABS: Urine Bacteria Many (Negative); Urine Red Blood Cell 0-2 /HPF (0-2)
[2025-02-08 23:55] VITALS: BP 132/70
[2025-02-09 00:31] LABS: Myelin Basic Protein, CSF 9.69 ng/mL (0.00-5.50)
[2025-02-09 01:19] LABS: Myeloperoxidase Antibody 0 AU/mL (0-19); Serine Protease-3, IgG 1 AU/mL (0-19)
--- NOTE | 2025-02-09 01:35 | W.PN.UPDATE ---
Update Note
Progress Note Update
Patient c/o urinary frequency and foul smelling urine. UA w/reflex to cx ordered. Preliminary results positive for nitrites, leukocyte esterase and many urine bacteria. Started on Ceftriaxone 1g IV Q 24H, adjust according to culture results.
[2025-02-09] MEDS: STERILE WATER FOR INJECTION 10 ML IV (02:11)
[2025-02-09] MEDS: ROCEPHIN 1000 MG IV (02:11)
[2025-02-09] MEDS: SYNTHROID 88 MCG PO (05:22)
[2025-02-09 06:31] LABS: Hematocrit 39.3 % (37.0-47.0); Hemoglobin 13.6 g/dL (12.0-16.0); Mean Corp Hgb Conc. 34.6 g/dL (33.0-37.0); Mean Corpuscular Hgb 31.5 pg (27.0-31.0); Mean Platelet Volume 9.4 fL (7.4-10.4); Platelet Count 278 10^3/uL (130-400); Red Blood Cell Count 4.32 10^6/uL (4.20-5.40); Red Cell Dist. Width 12.8 % (11.5-14.5); White Blood Cell Count 14.1 10^3/uL (4.8-10.8)
[2025-02-09 06:55] LABS: Blood Urea Nitrogen 25 mg/dl (7-17); Calcium 9.2 mg/dl (8.4-10.2); Carbon Dioxide 26 mmol/L (22-30); Chloride 109 mmol/L (98-107); Estimated Creatinine Clearance 69 ml/min; Glucose 103 mg/dl (70-99); Potassium 4.2 mmol/L (3.5-5.1); Sodium 142 mmol/L (135-145); eGFR > 60.00
[2025-02-09 07:25] VITALS: BP 155/88
[2025-02-09] MEDS: PROTONIX 40 MG PO (07:37)
[2025-02-09] MEDS: CRESTOR 20 MG PO (07:37)
[2025-02-09] MEDS: VITAMIN D3 (cholecalciferol) 50 MCG PO (07:37)
[2025-02-09] MEDS: ELIQUIS 5 MG PO ×2 (07:38→19:37)
[2025-02-09] MEDS: TOPROL XL 25 MG PO ×2 (07:38→19:38)
[2025-02-09] MEDS: SOLU-MEDROL 58 MG IV (07:39)
--- NOTE | 2025-02-09 07:39 | W.PN.NEURO.1 ---
Today's Communication / Plan
-
.
Subjective/Objective
Subjective Data
Date of Service: February 09, 2025
Neurology follow-up note.
24-hour events: Hypertensive in the morning, afebrile
Ms. Stephens reports improvement with her proximal and distal upper extremity weakness. She states that ambulation has been better. She requires 1 person assist only. No reports of change in vision, dysphagia or dysarthria.
CSF(02/05/2025) OCB-neg, MBP�9.69(0.00-5.50), LULI�2.7 (0�2.5), VDRL-neg
Serum LULI�normal.
UA�positive for nitrates, leukocyte esterase
C-spine MRI with and without keri�C2, C3, and C4 enhancing 4.4 cm intramedullary lesion, severe DJD.
Brain MRI with and without keri�no acute infarct or enhancement.
T spine MRI w/wo keri(02/06/2025) mild to moderate diffuse thoracic cord atrophy, T9/T10 herniation, T8/T9 syrinx, no pathology for cord enhancement, thyroid gland nodule,
PMH: A-fib, HTN, DLP, L breast adenocarcinoma(status post chemo and RT), hypothyroidism, L arm lymphedema, vitamin D deficiency, OA, KERI
PSH: L mastectomy/axillary nerve dissection(2010), bilateral cataract extraction, tubal ligation, Bl TKA,
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
FH: father, brother�A-fib, mother BRCA/breast cancer
All: ACEIs
ROS: Constitutional: Negative. Negative for chills, fever and unexpected weight change.
HENT: Negative for ear pain, hearing loss, tinnitus and trouble swallowing.
Eyes: Negative. Negative for photophobia, pain and visual disturbance.
Respiratory: Negative for cough, choking and shortness of breath.
Cardiovascular: Negative for chest pain, palpitations and leg swelling.
Gastrointestinal: Negative for abdominal pain and vomiting.
Endocrine: Negative. Negative for cold intolerance.
Genitourinary: Negative for dysuria, flank pain and urgency.
Musculoskeletal: positive for neck pain
Skin: Negative for rash.
Allergic/Immunologic: Negative. Negative for immunocompromised state.
Neurological: Positive for left arm weakness and paresthesias
Psychiatric/Behavioral: Positive for anxiety, insomnia
General: Well developed. In no acute distress.
Cardio: Regular rate and rhythm without murmur. Extremities are without cyanosis or edema.
Neuro:
Mental Status: Alert, oriented to person, place, and date. Minimally impaired attention and recall. Good fund of knowledge. Follows complex requests across the midline. Comprehension, naming, and repetition intact.
Cranial Nerves: Pupils are equally round, surgical EOMs full. Visual stevens full to confrontation. No ptosis. No nystagmus. V1-V3 intact to light touch and pinprick bilaterally, symmetric. Face symmetric. Reduced hearing on the left. The
palate elevated well. SCMs and traps 5/5. Tongue midline. No dysarthria.
Motor: Strength is 5 out of 5 except for bilateral delt 5-5, bilateral biceps 5- out of 5
Sensory: Absent vibration at the toes and ankles and preserved at the knees
Reflexes: 1+ R biceps, limited exam of the left upper extremity due to compression sleeve. Negative Rachel's bilaterally. Negative clonus of the ankles
Sensory: Absent vibration in the toes and ankles (chronic)
Coordination: No dysmetria or tremor. No extinction to DSS
Gait: deferred
Assessment and Plan:
I. C2-C4 intrinsic myelopathy. Clinical improvement
II. T8-T9 syrinx/thoracic cord atrophy
III. Chronic toxic polyneuropathy.
IV. Stage III left breast cancer, status post remote RT
V. T9/T10 disc herniation
- Continue Telemetry monitoring
- Follow-up CSF aquaporin 4 antibodies
- Continue Eliquis for stroke prevention
- Switch methylprednisolone to prednisone 40 mg daily and titrate by 10 mg every 2 days GI prophylaxis
- PT
- Outpatient neurology follow-up
I personally reviewed all radiology and labs along with past medical records pertinent to current medical problems. Total time spent in patient care is 40 minutes
Objective Data
Vital Signs
Temp Pulse Resp BP Pulse Ox
36.7 C 60 16 132/70 95
02/08/25 23:55 02/08/25 23:55 02/08/25 23:55 02/08/25 23:55 02/08/25 23:55
Lab Results
02/09/25 05:43
02/09/25 05:43
PT 15.0 Sec (11.4-14.6) H 02/04/25 10:00
INR 1.15 02/04/25 10:00
APTT 28.8 Sec (23.4-35.0) 02/04/25 10:00
Sodium 142 mmol/L (135-145) 02/09/25 05:43
Potassium 4.2 mmol/L (3.5-5.1) 02/09/25 05:43
BUN 25 mg/dl (7-17) H 02/09/25 05:43
Glucose 103 mg/dl (70-99) H 02/09/25 05:43
Calcium 9.2 mg/dl (8.4-10.2) 02/09/25 05:43
LDL Cholesterol, Calc 61 mg/dl 02/05/25 05:44
Vitamin B12 392 pg/ml (239-931) 02/05/25 09:17
Patient Allergies
lisinopril Adverse Reaction (Verified 12/29/23 06:33)
cough
Vital Signs and Labs
-
Vital Signs and Labs:
Vital Signs
Temp Pulse Resp BP Pulse Ox
36.6 C 68 16 155/88 96
02/09/25 07:25 02/09/25 09:35 02/09/25 07:25 02/09/25 09:35 02/09/25 07:25
Lab Results
02/09/25 05:43
02/09/25 05:43
PT 15.0 Sec (11.4-14.6) H 02/04/25 10:00
INR 1.15 02/04/25 10:00
APTT 28.8 Sec (23.4-35.0) 02/04/25 10:00
Sodium 142 mmol/L (135-145) 02/09/25 05:43
Potassium 4.2 mmol/L (3.5-5.1) 02/09/25 05:43
BUN 25 mg/dl (7-17) H 02/09/25 05:43
Glucose 103 mg/dl (70-99) H 02/09/25 05:43
Calcium 9.2 mg/dl (8.4-10.2) 02/09/25 05:43
LDL Cholesterol, Calc 61 mg/dl 02/05/25 05:44
Vitamin B12 392 pg/ml (239-931) 02/05/25 09:17
Medications
-
Medications:
Generic Name Dose Route Start Last Admin
Trade Name Freq PRN Reason Stop Dose Admin
Acetaminophen 650 mg 02/04/25 14:29
Acetaminophen 650 Mg Rectal Suppository RECTAL 03/04/25 14:28
Q4HPRN PRN
PEREZ, mild pain, or temp >100.4F
Acetaminophen 650 mg 02/04/25 14:29 02/06/25 17:56
Acetaminophen 325 Mg Tablet PO 03/04/25 14:28 650 mg
Q4HPRN PRN Administration
PEREZ, mild pain, or temp >100.4F
Apixaban 5 mg 02/06/25 10:45 02/09/25 07:38
Apixaban (Eliquis) 5 Mg Tablet PO 03/06/25 10:44 5 mg
BID CARLOS A Administration
Ceftriaxone Sodium 1,000 mg 02/09/25 02:00 02/09/25 02:11
Ceftriaxone 1000 Mg / 10 Ml Vial IV 1,000 mg
DAILY@0000 CARLOS A Administration
Cholecalciferol 50 mcg 02/05/25 08:00 02/09/25 07:37
Cholecalciferol (Vitamin D3) 50 Mcg Tablet (2,000 Units) PO 03/05/25 07:59 50 mcg
DAILY CARLOS A Administration
Escitalopram Oxalate 5 mg 02/04/25 22:00 02/08/25 20:13
Escitalopram 5 Mg Tablet PO 03/04/25 21:59 5 mg
HS CARLOS A Administration
Methylprednisolone Sodium 58 mls @ 100 mls/hr 02/05/25 08:00 02/09/25 07:39
Succinate 500 mg/ Sodium IV 03/05/25 07:59 58 mls
Chloride Q24H CARLOS A Administration
Levothyroxine Sodium 88 mcg 02/05/25 06:00 02/09/25 05:22
Levothyroxine 88 Mcg Tablet PO 03/05/25 05:59 88 mcg
DAILY@0600 CARLOS A Administration
Lidocaine 1 patch 02/05/25 22:00 02/08/25 19:55
Lidocaine 4% Topical Patch TOPICAL 03/05/25 21:59 Not Given
DAILY@2200 CARLOS A
Protocol
Losartan Potassium 25 mg 02/09/25 09:00 02/09/25 09:35
Losartan 25 Mg Tablet PO 03/09/25 08:59 25 mg
BID CARLOS A Administration
Metoprolol Succinate 25 mg 02/08/25 08:00 02/09/25 07:38
Metoprolol 25 Mg Extended Release Tablet PO 03/08/25 07:59 25 mg
BID CARLOS A Administration
Pantoprazole Sodium 40 mg 02/07/25 10:00 02/09/25 07:37
Pantoprazole 40 Mg Delayed Release Tablet PO 03/07/25 09:59 40 mg
DAILY CARLOS A Administration
Patch Removal 1 patch 02/08/25 10:00 02/09/25 07:39
Remove Lidocaine Patch REMOVE 03/08/25 09:59 1 patch
DAILY@0800 CARLOS A Administration
Polyethylene Glycol 17 grams 02/09/25 11:00
Polyethylene Glycol Powder 17 Grams Packet PO 03/09/25 10:59
DAILY CARLOS A
Rosuvastatin Calcium 20 mg 02/05/25 08:00 02/09/25 07:37
Rosuvastatin (Crestor) 20 Mg Tablet PO 03/05/25 07:59 20 mg
DAILY CARLOS A Administration
Senna/Docusate Sodium 1 tablet 02/09/25 20:00
Docusate W/Senna (Shirley-Colace) Tablet PO 03/09/25 19:59
BID CARLOS A
Sodium Chloride 0 flush 02/05/25 08:00 02/08/25 09:17
Sodium Chloride 0.9% (Flush) Syringe IV 03/05/25 07:59 2 flush
PER PROTOCOL CARLOS A Administration
Sterile Water 10 ml 02/09/25 02:00 02/09/25 02:11
Sterile Water For Injection 10 Ml Vial IV 03/09/25 01:59 10 ml
DAILY@0000 CARLOS A Administration
Home Medications
-
Home Medications
cholecalciferol (vitamin D3) 50 mcg (2,000 unit) capsule (Vitamin D3) 2,000 unit PO DAILY 05/15/19
apixaban 5 mg tablet (Eliquis) 5 mg PO BID ##0 06/06/19
metoprolol succinate 50 mg tablet,extended release 24 hr (Toprol XL) 50 mg PO DAILY #30 tabs 12/29/23
acetaminophen 650 mg tablet,extended release 1,300 mg PO [id number] PRN mild pain 02/04/25
escitalopram oxalate 5 mg tablet (Lexapro) 5 mg PO HS 02/04/25
levothyroxine 88 mcg tablet (Synthroid) 88 mcg PO DAILY 02/04/25
losartan 50 mg tablet 25 mg PO BID 02/04/25
methylprednisolone 4 mg tablets in a dose pack (Medrol (Sean)) 0 mg PO PER PKG DIR 02/04/25
rosuvastatin 10 mg tablet (Crestor) 10 mg PO DAILY 02/04/25
[2025-02-09] MEDS: COZAAR 25 MG PO ×2 (09:35→23:32)
[2025-02-09] MEDS: COZAAR PO (09:42)
--- NOTE | 2025-02-09 10:42 | W.PN.HOSP.TC ---
Today's Communication/Plan
-
Physiatry to eval for ARU
Completed IV Steroids
Needs to have BM
Assessment / Plan
Assessment / Plan
NAD
Scleral Anicteric
MMM
No JVD
CTABL
RRR, S1/S2
Soft, NT, Distended, BS+
Warm, Dry
AAOx3
Calm
C2-C4 intrinsic myelopathy although unclear as to etiology as potential causes could be autoimmune inflammatory demyelinating less likely vascular or infectious neoplastic per neurology
LP completed, initial results rather benign, rest labs are pending
Myelopathy serologies ordered
Thoracic spine MRI ordered per neurology
Steroids�high-dose 5-day course - completed on 02/09
PT/OT following recommend acute inpatient rehab.
Physiatry consulted on 02/09/2020
- [employer] messages sent to Dr. Black and Meagan Gil (02/08 at 1011am)
Atrial fibrillation�paroxysmal
Currently in sinus rhythm
Resumed Eliquis
Continue beta-rosario
Hypothyroidism
Continue Synthroid
Hypertension
Continue antihypertensive
Depression
Continue antidepressives
Constipation
Bowel reg
Anticipated Discharge: 24 - 48 hours
Subjective/Interval History
-
Date of Service: February 09, 2025
seen and examined. feelig much better today
last day of iv steroid
Objective Data
-
Labs:
Laboratory Results
02/09/25
05:43
WBC 14.1 H
Hgb 13.6
Hct 39.3
Plt Count 278
Sodium 142
Potassium 4.2
Chloride 109 H
Carbon Dioxide 26
BUN 25 H
Creatinine 0.7
Glucose 103 H
Calcium 9.2
Vital Signs:
Vital Signs
Temp Pulse Resp BP Pulse Ox
97.9 F 68 16 155/88 96
02/09/25 07:25 02/09/25 09:35 02/09/25 07:25 02/09/25 09:35 02/09/25 07:25
I&O
02/08/25 02/09/25 02/10/25
06:59 06:59 06:59
Intake Total 840 / 840 960 / 960 350 / 350
Output Total 2800 / 2800 900 / 900
Balance -1960 / -1960 60 / 60 350 / 350
[2025-02-09] MEDS: MIRALAX 17 GRAMS PO (11:15)
[2025-02-09] MEDS: SENOKOT-S 1 TABLET PO ×2 (11:15→19:38)
[2025-02-09 15:00] VITALS: BP 126/69
[2025-02-09 15:07] VITALS: BP 142/81; PULSE 65; O2SAT 97
[2025-02-09] MEDS: LIDOCAINE 4% PATCH TOPICAL (19:36)
[2025-02-09] MEDS: LEXAPRO 5 MG PO (19:38)
[2025-02-09 23:31] VITALS: BP 156/84
[2025-02-10] MEDS: STERILE WATER FOR INJECTION 10 ML IV ×2 (01:15→23:34)
[2025-02-10] MEDS: ROCEPHIN 1000 MG IV ×2 (01:15→23:33)
[2025-02-10] MEDS: SYNTHROID 88 MCG PO (06:03)
--- NOTE | 2025-02-10 06:28 | W.PN.HOSP.TC ---
Today's Communication/Plan
-
see a/p
Assessment / Plan
Assessment / Plan
Physical Exam
General: NAD
HEENT: Scleral Anicteric MMM No JVD
Pulm: CTABL
Cardio: RRR, S1/S2
Abd: Soft, NT, Distended, BS+
Skin: Warm, Dry
Neuro:AOx3 conversant coherent
Psych: Calm
74F afib HTN Hypothyroidism HLD Depression remote hx Breast Ca LUE lymphedema here for evaluation weakness lower ext's numbness left hand determined to be due to C2-C4 myelopathy unclear etiology.
C2-C4 intrinsic myelopathy although unclear as to etiology as potential causes could be autoimmune inflammatory demyelinating less likely vascular or infectious neoplastic per neurology
LP completed, results appreciated, Myelopathy serologies ordered, outpt follow up neurology recommended
Thoracic spine MRI appreciated
1. MODERATE-SIZED RIGHT CENTRAL-SUBARTICULAR DISC HERNIATION at T9/T10 causing moderate spinal cord compression.
2. CENTRAL SYRINX in the THORACIC SPINAL CORD at the T8 and T9 levels superior to the T9/T10 cord compression.
3. Mild to moderate diffuse atrophy of the thoracic spinal cord.
4. No MRI evidence for abnormal enhancement in the thoracic spinal cord.
5. 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
6. Mildly to moderately exaggerated thoracic kyphosis.
7. Minimal bilateral pleural effusions.
Steroids�high-dose 5-day course - completed on 02/09 prednisone taper as per Neuro
PT/OT following recommend acute inpatient rehab.
Physiatry consulted
Atrial fibrillation�paroxysmal
Currently in sinus rhythm
Resumed Eliquis
Continue beta-rosario
Hypothyroidism
Continue Synthroid
Hypertension
Continue antihypertensive
Depression
Continue antidepressives
Constipation
Bowel reg
Discharge planning Acute Rehab
Discussed with patient and patient's Luis
I spent a total of 45 minutes with the patient or on the floor. More than 50% of this time involved counseling and coordination of care.
Anticipated Discharge: Within 24 hours
Subjective/Interval History
-
Date of Service: February 10, 2025
No acute distress sitting up comfortably in chair. Reports constipation but also notes improving current laxatives. Denies new acute issues.
Objective Data
-
Labs:
Laboratory Results
02/10/25
06:12
WBC Pending
Hgb Pending
Hct Pending
Plt Count Pending
Sodium Pending
Potassium Pending
Chloride Pending
Carbon Dioxide Pending
BUN Pending
Creatinine Pending
Glucose Pending
Calcium Pending
Vital Signs:
Vital Signs
Temp Pulse Resp BP Pulse Ox
97.4 F 65 16 142/80 96
02/09/25 23:31 02/09/25 23:32 02/09/25 23:31 02/09/25 23:32 02/09/25 23:31
I&O
02/08/25 02/09/25 02/10/25
06:59 06:59 06:59
Intake Total 840 / 840 960 / 960 1190 / 1190
Output Total 2800 / 2800 900 / 900
Balance -1959 / -1959 60 60 1190 / 1190
[2025-02-10 06:57] LABS: ANA, HEp-2, IgG <1:80 (<1:80)
[2025-02-10 07:30] VITALS: BP 130/68
[2025-02-10 07:30] LABS: Hematocrit 40.1 % (37.0-47.0); Hemoglobin 13.7 g/dL (12.0-16.0); Mean Corp Hgb Conc. 34.2 g/dL (33.0-37.0); Mean Corpuscular Hgb 31.1 pg (27.0-31.0); Mean Corpuscular Volume 91.1 fL (81.0-99.0); Mean Platelet Volume 9.5 fL (7.4-10.4); Platelet Count 307 10^3/uL (130-400); Red Cell Dist. Width 12.9 % (11.5-14.5); White Blood Cell Count 14.8 10^3/uL (4.8-10.8)
[2025-02-10 08:02] LABS: Blood Urea Nitrogen 25 mg/dl (7-17); Calcium 9.4 mg/dl (8.4-10.2); Carbon Dioxide 26 mmol/L (22-30); Chloride 105 mmol/L (98-107); Estimated Creatinine Clearance 61 ml/min; Glucose 87 mg/dl (70-99); Potassium 4.3 mmol/L (3.5-5.1); Sodium 142 mmol/L (135-145); eGFR > 60.00
[2025-02-10] MEDS: PROTONIX 40 MG PO (08:23)
[2025-02-10] MEDS: SENOKOT-S 1 TABLET PO ×2 (08:23→20:02)
[2025-02-10] MEDS: VITAMIN D3 (cholecalciferol) 50 MCG PO (08:24)
[2025-02-10] MEDS: ELIQUIS 5 MG PO ×2 (08:24→20:02)
[2025-02-10] MEDS: TOPROL XL 25 MG PO ×2 (08:24→20:07)
[2025-02-10] MEDS: CRESTOR 20 MG PO (08:24)
[2025-02-10] MEDS: COZAAR 25 MG PO ×2 (08:24→20:07)
[2025-02-10] MEDS: DELTASONE 40 MG PO (08:24)
[2025-02-10] MEDS: MIRALAX 17 GRAMS PO (08:25)
[2025-02-10] MEDS: FLUSH (NSS) 1 FLUSH IV (08:25)
[2025-02-10 08:33] LABS: Lyme Disease DNA by PCR Not Detected; Lyme Source CSF
[2025-02-10 15:05] VITALS: BP 112/62
--- NOTE | 2025-02-10 16:55 | CON.MD ---
Documented by User: Meagan Gil PA-C 02/10/25 21:06
Consultation - Medical
-
Referring Provider: Dr. Pedroza
Chief Complaint: Debility, C2-C4 intrinsic neuropathy
History of Present Illness: This is a 74 female with PMH of( atrial fibrillation, hypertension. hypothyroidism hyperlipidemia) who presented to the ED on 02/04/2025 with weakness numbness tingling in the left upper extremity that began overnight.
States 3 days ago began to experience muscle spasms in the neck and shoulder region bilaterally however developed sensory changes Monday afternoon. States prior to this was helping to lift something for her when the states to
clinic and after that has had pain. Thought this was a pinched nerve. Additionally, visit was prompted by holding a cold ice pack in her right hand noticing it was cold however her left hand was unable to sense this. Also states with abnormal gait
and unsteady.
In the ED remained hemodynamically stable. CBC unremarkable apart from white blood cell count of 11.3, head CT with no acute intracranial abnormalities, head and neck CTA no significant carotid atherosclerotic laterally. No evidence of internal
carotid artery or vertebral artery dissection bilaterally and no significant proximal intracranial arterial stenosis or vessel cutoff noted. Did not receive TNKase as on Eliquis 5 mg twice a day.
C-spine MRI with and without keri�C2, C3, and C4 enhancing 4.4 cm intramedullary lesion, severe DJD. Brain MRI with and without keri�no acute infarct or enhancement. Had a lumbar puncture which resulted with-CSF(normal OP 15, CP�12 cm of water; 0
WBCs, RBCs�59, glucose�61, total protein�76. Labs: Vitamin B12�392, folate�normal. started on methylprednisone 500 mg qd. Thoracic MRI�02/07/2025 :MODERATE-SIZED RIGHT CENTRAL-SUBARTICULAR DISC HERNIATION at T9/T10 causing moderate spinal cord
compression. CENTRAL SYRINX in the THORACIC SPINAL CORD at the T8 and T9 levels superior to the T9/T10 cord compression.
02/06/25: Patient able to stand on her feet without her legs not buckling today.
02/07/25: continues to struggle with writing and using her cell phone. Neck pain is improved with lidocaine patch and cool compresses. She states that ambulation has been better. She requires 1 person assist only. No reports of change in vision,
dysphagia or dysarthria.
UA�positive for nitrates, leukocyte esterase: Started on antibiotics pending culture results.
02/09/25: Follow-up CSF aquaporin 4 antibodies, Completed IV steroids. Continue Eliquis for stroke prevention. Completed high-dose 5-day course on 02/09. switch methylprednisolone to prednisone 40 mg daily and titrate by 10 mg every 2 days GI
prophylaxis
Neuro: Differential diagnosis: C2-C4 intrinsic myelopathy. Diagnostic possibilities include autoimmune vs inflammatory vs demyelinating, less likely vascular, infectious or neoplastic:Primary MECHANICAL SOUND TECHNICIAN autoimmune disease such as neuromyelitis optica
spectrum disorder, systemic autoimmune disease, postinfectious or infectious causes of transverse myelitis, spinal cord infarction, spinal cord tumor (spinal astrocytoma or less likely metastatic disease ) is an alternative less likely diagnostic
possibility includes autoimmune vs inflammatory vs demyelinating, less likely vascular, infectious or neoplastic.
Past Medical History: A-fib, HTN, DLP, L breast adenocarcinoma(status post chemo and RT), hypothyroidism, L arm lymphedema, vitamin D deficiency, OA, KERI
Procedure History: L mastectomy/axillary nerve dissection(2010), bilateral cataract extraction, tubal ligation, Bl TKA,
Family History: father, brother�A-fib, mother BRCA/breast cancer
Social History:
Functional Level Premorbidly: Independent with all activities , exercises regularly active
Functional Level Currently: Bed mobility�supervision, transfers�min assist x 2 for safety, ambulation 4 feet forward 3 feet backward all with rolling walker min assist x 2, mildly unsteady without overt loss of balance. OT-upper extremity
self-care�supervision, lower extremity self-care�mod assist, eating, grooming�set up, toilet transfer�min assist.
Tobacco: Denies
Alcohol: Denies
Drug use: Denies
Lives with: spouse
24-hour assistance available:
Number of floors: 1
# steps to enter: 1
# steps to second floor
Potential First floor set up:yes
Driving: Yes
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
Allergies:
Allergy/AdvReac Type Severity Reaction Status Date / Time
lisinopril AdvReac cough Verified 12/29/23 06:33
Review of Systems:
Constitutional: (x) Normal _
Eye: (x) Normal _
Ear/Nose/Throat: (x) Normal _
Respiratory: (x) Normal _
Cardiovascular: (x) Normal _
Gastrointestinal: (x) Normal _
Genitourinary: (x) abNormal _urinary frequency, UTI, urinary retention
Musculoskeletal: (x) abNormal _left arm weakness and paresthesia, neck pain
Integumentary: (x) Normal _
Neurologic: (x) abNormal _LUE numbness-since radiation and lymph node removal
Psychiatric: (x) abNormal _anxiety/depression
Endocrine: (x) Normal _
Hematologic/Lymphatic: (x) Normal _
Allergic/Immunologic: (x) Normal _
Medications:
Active Current Visit Medication List
Category Date Time Status
Acetaminophen [Tylenol/Feverall] Med 02/04/25 14:29 Active
650 mg RECTAL Q4HPRN PRN
Acetaminophen [Tylenol] Med 02/04/25 14:29 Active
650 mg PO Q4HPRN PRN
Apixaban [Eliquis] Med 02/06/25 10:45 Active
5 mg PO BID
CefTRIAXone [Rocephin] Med 02/09/25 02:00 Active
1,000 mg IV DAILY@0000
Cholecalciferol (Vitamin D3) [VITAMIN D3 ( Med 02/05/25 08:00 Active
cholecalciferol)]
50 mcg PO DAILY
Docusate W/Senna [Senokot-S] Med 02/09/25 20:00 Active
1 tablet PO BID
Escitalopram Oxalate [Lexapro] Med 02/04/25 22:00 Active
5 mg PO HS
Flush (0.9% Sodium Chloride) [Flush (Nss)] Med 02/05/25 08:00 Active
See Dose Instructions IV PER PROTOCOL
Levothyroxine [Synthroid] Med 02/05/25 06:00 Active
88 mcg PO DAILY@0600
Lidocaine [Lidocaine 4% Patch] Med 02/05/25 22:00 Active
1 patch TOPICAL DAILY@2200
Losartan [Cozaar] Med 02/09/25 09:00 Active
25 mg PO BID
Metoprolol Xl [Toprol Xl] Med 02/08/25 08:00 Active
25 mg PO BID
Pantoprazole [Protonix] Med 02/07/25 10:00 Active
40 mg PO DAILY
Polyethylene Glycol Powder [Miralax] Med 02/09/25 11:00 Active
17 grams PO DAILY
Prednisone [Deltasone] Med 02/10/25 08:00 Active
40 mg PO DAILY
Remove Patch [Remove Lidocaine Patch] Med 02/08/25 10:00 Active
1 patch REMOVE DAILY@0800
Rosuvastatin Calcium [Crestor] Med 02/05/25 08:00 Active
20 mg PO DAILY
Sterile Water [Sterile Water For Injection] Med 02/09/25 02:00 Active
10 ml IV DAILY@0000
Vitals:
Temp Pulse Resp BP Pulse Ox
98.8 F 65 16 130/68 95
02/10/25 07:30 02/10/25 07:30 02/10/25 07:30 02/10/25 07:30 02/10/25 07:30
Height 5 ft 5 in
Actual Weight 74.979 kg
Body Mass Index (BMI) 27.5
Physical Exam:
General Appearance/Observation: Well-developed, well-nourished individual in no apparent distress.
Pain/Comfort Assessment: Denies
Mood/Affect: Appropriate
Integumentary/Operative Site:
Pressure Ulcer Evaluation: absent over heels.
Eyes: Conjunctiva/Lids: normal Pupils: pupils equal round and reactive to light and Accommodation
Ears/Nose/Throat: oral mucosa moist, throat clear. Lips/Teeth/Gums: normal
Neck: No muscle spasm or tenderness
Cardiovascular: Heart: regular, murmur
Pulses: dorsalis pedis 2+ bilaterally
Respiratory: Respiratory Effort/Chest Expansion: normal Auscultation: Clear to auscultation bilaterally
Gastrointestinal: abdomen not tender, no distension, normal abdominal bowel sounds
Genitourinary: No Ray
Extremities: Edema: None Cyanosis: None Trophic changes: None
Neurology Exam:
Orientation: Alert, Oriented to self, Time, Place
Memory: Intact for immediate medical concern
Comprehension: Intact
Two step command: Intact
Naming: Intact
Cranial Nerves:
CNII: Pupillary light reflex: Intact Visual Field: Intact
CN III, IV, : Extraocular muscles: Intact
CN V: Facial Sensation at Forehead: Intact, Maxilla: Intact, Mandible: Intact
CN VII: Facial movement: Symmetric
CN VIII: Hearing: Normal
CN IX/X: Speech & swallow: Normal, Position of Uvula: Midline
CN XI: Shoulder shrug: Symmetric
CN XII: Tongue protrusion: Midline
Sensory:
Light touch: Intact in bilateral upper and lower extremities. Legs feels 'funny, numbness but not to touch'
Reflexes:
Biceps: 1+ right
Brachioradialis: + bilaterally
Triceps: 1+right
Patellar:absent bilaterally
Achilles: absent bilaterally
Babinski: Down going bilaterally
Clonus: None
Rachel: Negative bilaterally
Cerebellar: Dysmetria/Ataxia: None
Musculoskeletal:
Motor: (Manual muscle scale 0-5)
Muscle SA EF WE EE FF FA HF KE DF EHL DF PF
Right 4 5 5 4 4 5 5 5 5 5
Left 4 5 4 4 4 5 5 5 5 5
Tone: Normal in all extremities
Range of Motion: Passively within normal limits in all extremities
Lab Results:
Labs
WBC 14.8 10^3/uL (4.8-10.8) H 02/10/25 06:12
RBC 4.40 10^6/uL (4.20-5.40) 02/10/25 06:12
Hgb 13.7 g/dL (12.0-16.0) 02/10/25 06:12
Hct 40.1 % (37.0-47.0) 02/10/25 06:12
MCV 91.1 fL (81.0-99.0) 02/10/25 06:12
MCH 31.1 pg (27.0-31.0) H 02/10/25 06:12
MCHC 34.2 g/dL (33.0-37.0) 02/10/25 06:12
RDW 12.9 % (11.5-14.5) 02/10/25 06:12
Plt Count 307 10^3/uL (130-400) 02/10/25 06:12
MPV 9.5 fL (7.4-10.4) 02/10/25 06:12
Abs Immat Gran (auto) 0.1 10^3/uL (0-0.05) H 02/04/25 10:00
Absolute Neuts (auto) 9.4 10^3/uL (1.4-6.5) H 02/04/25 10:00
Absolute Lymphs (auto) 1.1 10^3/uL (1.2-3.4) L 02/04/25 10:00
Absolute Monos (auto) 0.6 10^3/uL (0.1-0.6) 02/04/25 10:00
Absolute Eos (auto) 0.1 10^3/uL (0-0.7) 02/04/25 10:00
Absolute Basos (auto) 0.0 10^3/uL (0-0.2) 02/04/25 10:00
Immature Gran % 0.4 % (0-0.5) 02/04/25 10:00
Neutrophils % 83.8 % (42.2-75.2) H 02/04/25 10:00
Lymphocytes % 10.0 % (20.5-51.1) L 02/04/25 10:00
Monocytes % 5.0 % (1.7-9.3) 02/04/25 10:00
Eosinophils % 0.4 % (0-6) 02/04/25 10:00
Basophils % 0.4 % (0-2) 02/04/25 10:00
Nucleated RBC % 0 % 02/04/25 10:00
ESR 2 mm/hour (0-20) 02/05/25 05:44
PT 15.0 Sec (11.4-14.6) H 02/04/25 10:00
INR 1.15 02/04/25 10:00
APTT 28.8 Sec (23.4-35.0) 02/04/25 10:00
Sodium 142 mmol/L (135-145) 02/10/25 06:12
Potassium 4.3 mmol/L (3.5-5.1) 02/10/25 06:12
Chloride 105 mmol/L (98-107) 02/10/25 06:12
Carbon Dioxide 26 mmol/L (22-30) 02/10/25 06:12
BUN 25 mg/dl (7-17) H 02/10/25 06:12
Creatinine 0.8 mg/dL (0.6-1.0) 02/10/25 06:12
Estimated Creat Clear 61 ml/min 02/10/25 06:12
eGFR > 60.00 02/10/25 06:12
Glucose 87 mg/dl (70-99) 02/10/25 06:12
Calcium 9.4 mg/dl (8.4-10.2) 02/10/25 06:12
C-Reactive Protein < 5.00 mg/L (0.0-10.00) 02/05/25 09:17
Triglycerides 80 mg/dl (10-149) 02/05/25 05:44
Total Cholesterol 180 mg/dl (50-199) 02/05/25 05:44
LDL Cholesterol, Calc 61 mg/dl 02/05/25 05:44
VLDL Cholesterol, Calc 16 mg/dl (0-30) 02/05/25 05:44
HDL Cholesterol 103 mg/dl 02/05/25 05:44
Angiotensin Convert Enz 24 U/L (16-85) 02/05/25 09:17
Vitamin B12 392 pg/ml (239-931) 02/05/25 09:17
Folate 11.8 ng/ml (2.76-20) 02/05/25 09:17
Urine Color Yellow 02/08/25 22:28
Urine Clarity Clear (Clear) 02/08/25 22:28
Urine pH 6.0 (5.0-9.0) 02/08/25 22:28
Ur Specific [place] 1.010 (<1.030) 02/08/25 22:28
Urine Ketones Negative (Negative) 02/08/25 22:28
Ur Occult Blood Reflex 3+ (Negative) A 02/08/25:28
Urine Nitrite (Reflex) Positive (Negative) A 02/08/25 22:28
Urine Bilirubin Negative (Negative) 02/08/25 22:28
Urine Urobilinogen Negative (Neg - 1+) 02/08/25:28
Leukocyte Esterase Rfl 2+ (Negative) A 02/08/25 22:28
Urine RBC 0-2 /HPF (0-2) 02/08/25 22:28
Urine WBC (Reflex) 6-10 /HPF (0-5) 02/08/25 22:28
Ur Squamous Epith Cells 0-2 /LPF (Few) 02/08/25 22:28
Amorphous Crystals Seen 02/08/25 22:
Urine Bacteria (Reflex) Many (Negative) A 02/08/25:
Urine Glucose Negative (Negative) 02/08/25 22:
Urine Albumin (Reflex) Negative (Neg - Trace) 02/08/25 22:
CSF Appearance Clear 02/05/25:34
CSF Appearance Clear 02/05/25:
CSF Color Colorless 02/05/25:
CSF Color Colorless 02/05/25:
CSF WBC 0 mm^3 (0-5) 02/05/25:
CSF WBC 4 mm^3 (0-5) 02/05/25:
CSF RBC 59 mm^3 02/05/25:
CSF RBC 415 mm^3 02/05/25:
CSF Cell Count Tube # 1 02/05/25:
CSF Cell Count Tube # 4 02/05/25:34
CSF Glucose 61 mg/dl (40-70) 02/05/25:
CSF Total Protein 76 mg/dl (12-60) H 02/05/25:
CSF Albumin 33 mg/dL (0-35) 02/05/25:
CSF IgG 4.0 mg/dL (0.0-6.0) 02/05/25:
Serum Albumin 4213 mg/dL (9305-3310) 02/05/25:
CSF IgG/Albumin 0.12 ratio (0.09-0.25) 02/05/25:
CSF Alb/Ser Alb Index 7.8 ratio (0.0-9.0) 02/05/25:
CSF IgG Synthesis Rate <0.0 mg/d (<=8.0) 02/05/25:
CSF Myelin Basic Protein 9.69 ng/mL (0.00-5.50) H 05/07/25 15:34
CSF Oligoclonal Bands Negative (Negative) 02/05/25 15:34
CSF Oligoclonal Bands # 0 Bands (0-1) 02/05/25 15:34
CSF Angiotensin Conv Enz 2.7 U/L (0.0-2.5) H 02/05/25 15:34
CSF VDRL Non reactive (Non Reactive) 02/05/25 15:34
IgG 1056 mg/dL (768-1632) 02/05/25 15:34
IgG Index 0.48 ratio (0.28-0.66) 02/05/25 15:34
RODRIGO IgG Screen Detected (None Detected) A 02/05/25 09:17
RODRIGO (Hep-2) <1:80 (<1:80) 02/05/25 09:17
RODRIGO Comment See note 02/05/25 09:17
Proteinase 3 (PR3) Ab 1 AU/mL (0-19) 02/05/25 09:17
Myeloperoxidase Ab 0 AU/mL (0-19) 02/05/25 09:17
Mult Sclerosis Intrep See note 02/05/25 15:34
Syphilis Serology Negative (Negative) 02/05/25 09:17
Lyme Specimen Source Cancelled 02/05/25 09:17
Lyme Screen IgG & IgM Negative (Negative) 02/05/25 09:17
Lyme Disease DNA (PCR) Cancelled 02/05/25 09:17
HTLV I/II Antibody Negative (Negative) 02/05/25 09:17
Miscellaneous Test Cancelled 02/05/25 15:34
POC Glucose 104 mg/dl (70-99) H 02/04/25 10:01
Diagnostic Results: as per HPI
C-spine MRI with and without keri�C2, C3, and C4 enhancing 4.4 cm intramedullary lesion, severe DJD.
Brain MRI with and without keri�no acute infarct or enhancement.
T spine MRI w/wo keri(02/06/2025) mild to moderate diffuse thoracic cord atrophy, T9/T10 herniation, T8/T9 syrinx, no pathology for cord enhancement, thyroid gland nodule,
Labs: Lyme screen�negative.
Echo -02/04/25
Normal left ventricular size, wall thickness and systolic function.
LV ejection fraction is 55-60% by volumetric assessment.
Normal right ventricular size and function.
Trace mitral regurgitation.
Trace aortic regurgitation.
Mild tricuspid regurgitation.
Estimated pulmonary artery pressure of 35 mmHg assuming a right atrial pressure
of 3 mmHg.
Trace pulmonic regurgitation.
Normal pericardium without effusion.
Mildly dilated aortic root.
Assessment:74 year old female with bilateral upper and lower extremities weakness
Plan
PM&R PT/OT to increase independence with ADLs, improve balance, coordination, endurance, strength, mobility, community reintegration, decreased burden of care on others and family education.
C2-C4 intrinsic myelopathy: Per neuro:Follow-up CSF aquaporin 4 antibodies.Continue Eliquis for stroke prevention.Switch methylprednisolone to prednisone 40 mg daily and titrate by 10 mg every 2 days GI prophylaxis
Thoracic spine: MODERATE-SIZED RIGHT CENTRAL-SUBARTICULAR DISC HERNIATION at T9/T10 causing moderate spinal cord compression. CENTRAL SYRINX in the THORACIC SPINAL CORD at the T8 and T9. OP neurosurgery consult
Chronic toxic polyneuropathy.
Stage III left breast cancer/Left arm lymphedema: status post remote RT
HTN: Metoprolol, losartan. monitor closely
HLD: Statin
Coronary artery disease : Aspirin, statin, beta-rosario
Atrial fibrillation: Resumed Eliquis. Continue beta-rosario
Hypothyroidism: levothyroxine 88mcg
Psych/depression: Psychology consult. Monitor mood, adjust medications as needed.
Skin: monitor for pressure sores/rashes/lesions.
Pain: acetaminophen or oxycodone as needed. Lidoderm patch
Bowel: Colace and Senna, PRN bisacodyl.
Bladder/UTI/Urinary Retention: Time void, PVRs, PRN straight cath. Ceftriaxone 1000 IV qd
GI Prophylaxis: Pantoprazole 40mg qd
DVT Prophylaxis: Eliquis 5mg bid
Pulmonary: Incentive spirometry
Safety: Continue to reinforce assistance with all transfers.
Code Status: Full code
Dispo (date/plan/equipment needs): Home with family care. Social history reviewed.
Functional and Medical Goals: Modified Independent with ADL�s, ambulation, transfers
Discharge Destination: Acute inpatient rehabilitation
Summary of recommendations:Would benefit from inpatient rehabilitation for PT/OT to increase independence with ADLs, improve balance, coordination, endurance, strength, mobility, community
C2-C4 intrinsic myelopathy: Per neuro:Follow-up CSF aquaporin 4 antibodies.Continue Eliquis for stroke prevention.Switch methylprednisolone to prednisone 40 mg daily and titrate by 10 mg every 2 days GI prophylaxis. Please comment on duration of
prednisone.
Thoracic spine:cord compression, syrinx-recommend OP neurosurgery evaluation
UTI: cont ceftriaxone-
Pulmonary: Incentive spirometry.
Thank you for allowing me to care for your patient. Please contact me with any questions or concerns.

Documented by User: Josemanuel Black MD 02/12/25 15:32
Consultation - Medical
-
Referring Provider: Dr. Pedroza
Chief Complaint: Debility, C2-C4 intrinsic neuropathy
History of Present Illness: This is a 74 female with PMH of( atrial fibrillation, hypertension. hypothyroidism hyperlipidemia) who presented to the ED on 02/04/2025 with weakness numbness tingling in the left upper extremity that began overnight.
States 3 days ago began to experience muscle spasms in the neck and shoulder region bilaterally however developed sensory changes Satur afternoon. States prior to this was helping to lift something for her when the states to
clinic and after that has had pain. Thought this was a pinched nerve. Additionally, visit was prompted by holding a cold ice pack in her right hand noticing it was cold however her left hand was unable to sense this. Also states with abnormal gait
and unsteady.
In the ED remained hemodynamically stable. CBC unremarkable apart from white blood cell count of 11.3, head CT with no acute intracranial abnormalities, head and neck CTA no significant carotid atherosclerotic laterally. No evidence of internal
carotid artery or vertebral artery dissection bilaterally and no significant proximal intracranial arterial stenosis or vessel cutoff noted. Did not receive TNKase as on Eliquis 5 mg twice a day.
C-spine MRI with and without keri�C2, C3, and C4 enhancing 4.4 cm intramedullary lesion, severe DJD. Brain MRI with and without keri�no acute infarct or enhancement. Had a lumbar puncture which resulted with-CSF(normal OP 15, CP�12 cm of water; 0
WBCs, RBCs�59, glucose�61, total protein�76. Labs: Vitamin B12�392, folate�normal. started on methylprednisone 500 mg qd. Thoracic MRI�02/07/2025 :MODERATE-SIZED RIGHT CENTRAL-SUBARTICULAR DISC HERNIATION at T9/T10 causing moderate spinal cord
compression. CENTRAL SYRINX in the THORACIC SPINAL CORD at the T8 and T9 levels superior to the T9/T10 cord compression.
02/06/25: Patient able to stand on her feet without her legs not buckling today.
02/07/25: continues to struggle with writing and using her cell phone. Neck pain is improved with lidocaine patch and cool compresses. She states that ambulation has been better. She requires 1 person assist only. No reports of change in vision,
dysphagia or dysarthria.
UA�positive for nitrates, leukocyte esterase: Started on antibiotics pending culture results.
02/09/25: Follow-up CSF aquaporin 4 antibodies, Completed IV steroids. Continue Eliquis for stroke prevention. Completed high-dose 5-day course on 02/09. switch methylprednisolone to prednisone 40 mg daily and titrate by 10 mg every 2 days GI
prophylaxis
Neuro: Differential diagnosis: C2-C4 intrinsic myelopathy. Diagnostic possibilities include autoimmune vs inflammatory vs demyelinating, less likely vascular, infectious or neoplastic:Primary MECHANICAL SOUND TECHNICIAN autoimmune disease such as neuromyelitis optica
spectrum disorder, systemic autoimmune disease, postinfectious or infectious causes of transverse myelitis, spinal cord infarction, spinal cord tumor (spinal astrocytoma or less likely metastatic disease ) is an alternative less likely diagnostic
possibility includes autoimmune vs inflammatory vs demyelinating, less likely vascular, infectious or neoplastic.
Past Medical History: A-fib, HTN, DLP, L breast adenocarcinoma(status post chemo and RT), hypothyroidism, L arm lymphedema, vitamin D deficiency, OA, KERI
Procedure History: L mastectomy/axillary nerve dissection(2010), bilateral cataract extraction, tubal ligation, Bl TKA,
Family History: father, brother�A-fib, mother BRCA/breast cancer
Social History:
Functional Level Premorbidly: Independent with all activities , exercises regularly active
Functional Level Currently: Bed mobility�supervision, transfers�min assist x 2 for safety, ambulation 4 feet forward 3 feet backward all with rolling walker min assist x 2, mildly unsteady without overt loss of balance. OT-upper extremity
self-care�supervision, lower extremity self-care�mod assist, eating, grooming�set up, toilet transfer�min assist.
Tobacco: Denies
Alcohol: Denies
Drug use: Denies
Lives with: spouse
24-hour assistance available:
Number of floors: 1
# steps to enter: 1
# steps to second floor
Potential First floor set up:yes
Driving: Yes
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
Allergies:
Allergy/AdvReac Type Severity Reaction Status Date / Time
lisinopril AdvReac cough Verified 12/29/23 06:33
Review of Systems:
Constitutional: (x) Normal _
Eye: (x) Normal _
Ear/Nose/Throat: (x) Normal _
Respiratory: (x) Normal _
Cardiovascular: (x) Normal _
Gastrointestinal: (x) Normal _
Genitourinary: (x) abNormal _urinary frequency, UTI, urinary retention
Musculoskeletal: (x) abNormal _left arm weakness and paresthesia, neck pain
Integumentary: (x) Normal _
Neurologic: (x) abNormal _LUE numbness-since radiation and lymph node removal
Psychiatric: (x) abNormal _anxiety/depression
Endocrine: (x) Normal _
Hematologic/Lymphatic: (x) Normal _
Allergic/Immunologic: (x) Normal _
Medications:
Active Current Visit Medication List
Category Date Time Status
Acetaminophen [Tylenol/Feverall] Med 02/04/25 14:29 Active
650 mg RECTAL Q4HPRN PRN
Acetaminophen [Tylenol] Med 02/04/25 14:29 Active
650 mg PO Q4HPRN PRN
Apixaban [Eliquis] Med 02/06/25 10:45 Active
5 mg PO BID
CefTRIAXone [Rocephin] Med 02/09/25 02:00 Active
1,000 mg IV DAILY@0000
Cholecalciferol (Vitamin D3) [VITAMIN D3 ( Med 02/05/25 08:00 Active
cholecalciferol)]
50 mcg PO DAILY
Docusate W/Senna [Senokot-S] Med 02/09/25 20:00 Active
1 tablet PO BID
Escitalopram Oxalate [Lexapro] Med 02/04/25 22:00 Active
5 mg PO HS
Flush (0.9% Sodium Chloride) [Flush (Nss)] Med 02/05/25 08:00 Active
See Dose Instructions IV PER PROTOCOL
Levothyroxine [Synthroid] Med 02/05/25 06:00 Active
88 mcg PO DAILY@0600
Lidocaine [Lidocaine 4% Patch] Med 02/05/25 22:00 Active
1 patch TOPICAL DAILY@2200
Losartan [Cozaar] Med 02/09/25 09:00 Active
25 mg PO BID
Metoprolol Xl [Toprol Xl] Med 02/08/25 08:00 Active
25 mg PO BID
Pantoprazole [Protonix] Med 02/07/25 10:00 Active
40 mg PO DAILY
Polyethylene Glycol Powder [Miralax] Med 02/09/25 11:00 Active
17 grams PO DAILY
Prednisone [Deltasone] Med 02/10/25 08:00 Active
40 mg PO DAILY
Remove Patch [Remove Lidocaine Patch] Med 02/08/25 10:00 Active
1 patch REMOVE DAILY@0800
Rosuvastatin Calcium [Crestor] Med 02/05/25 08:00 Active
20 mg PO DAILY
Sterile Water [Sterile Water For Injection] Med 02/09/25 02:00 Active
10 ml IV DAILY@0000
Vitals:
Temp Pulse Resp BP Pulse Ox
98.8 F 65 16 130/68 95
02/10/25 07:30 02/10/25 07:30 02/10/25 07:30 02/10/25 07:30 02/10/25 07:30
Height 5 ft 5 in
Actual Weight 74.979 kg
Body Mass Index (BMI) 27.5
Physical Exam:
General Appearance/Observation: Well-developed, well-nourished individual in no apparent distress.
Pain/Comfort Assessment: Denies
Mood/Affect: Appropriate
Integumentary/Operative Site:
Pressure Ulcer Evaluation: absent over heels.
Eyes: Conjunctiva/Lids: normal Pupils: pupils equal round and reactive to light and Accommodation
Ears/Nose/Throat: oral mucosa moist, throat clear. Lips/Teeth/Gums: normal
Neck: No muscle spasm or tenderness
Cardiovascular: Heart: regular, murmur
Pulses: dorsalis pedis 2+ bilaterally
Respiratory: Respiratory Effort/Chest Expansion: normal Auscultation: Clear to auscultation bilaterally
Gastrointestinal: abdomen not tender, no distension, normal abdominal bowel sounds
Genitourinary: No Ray
Extremities: Edema: None Cyanosis: None Trophic changes: None
Neurology Exam:
Orientation: Alert, Oriented to self, Time, Place
Memory: Intact for immediate medical concern
Comprehension: Intact
Two step command: Intact
Naming: Intact
Cranial Nerves:
CNII: Pupillary light reflex: Intact Visual Field: Intact
CN III, IV, : Extraocular muscles: Intact
CN V: Facial Sensation at Forehead: Intact, Maxilla: Intact, Mandible: Intact
CN VII: Facial movement: Symmetric
CN VIII: Hearing: Normal
CN IX/X: Speech & swallow: Normal, Position of Uvula: Midline
CN XI: Shoulder shrug: Symmetric
CN XII: Tongue protrusion: Midline
Sensory:
Light touch: Intact in bilateral upper and lower extremities. Legs feels 'funny, numbness but not to touch'
Reflexes:
Biceps: 1+ right
Brachioradialis: + bilaterally
Triceps: 1+right
Patellar:absent bilaterally
Achilles: absent bilaterally
Babinski: Down going bilaterally
Clonus: None
Rachel: Negative bilaterally
Cerebellar: Dysmetria/Ataxia: None
Musculoskeletal:
Motor: (Manual muscle scale 0-5)
Muscle SA EF WE EE FF FA HF KE DF EHL DF PF
Right 4 5 5 4 4 5 5 5 5 5
Left 4 5 4 4 4 5 5 5 5 5
Tone: Normal in all extremities
Range of Motion: Passively within normal limits in all extremities
Lab Results:
Labs
WBC 14.8 10^3/uL (4.8-10.8) H 02/10/25 06:12
RBC 4.40 10^6/uL (4.20-5.40) 02/10/25 06:12
Hgb 13.7 g/dL (12.0-16.0) 02/10/25 06:12
Hct 40.1 % (37.0-47.0) 02/10/25 06:12
MCV 91.1 fL (81.0-99.0) 02/10/25 06:12
MCH 31.1 pg (27.0-31.0) H 02/10/25 06:12
MCHC 34.2 g/dL (33.0-37.0) 02/10/25 06:12
RDW 12.9 % (11.5-14.5) 02/10/25 06:12
Plt Count 307 10^3/uL (130-400) 02/10/25 06:12
MPV 9.5 fL (7.4-10.4) 02/10/25 06:12
Abs Immat Gran (auto) 0.1 10^3/uL (0-0.05) H 02/04/25 10:00
Absolute Neuts (auto) 9.4 10^3/uL (1.4-6.5) H 02/04/25 10:00
Absolute Lymphs (auto) 1.1 10^3/uL (1.2-3.4) L 02/04/25 10:00
Absolute Monos (auto) 0.6 10^3/uL (0.1-0.6) 02/04/25 10:00
Absolute Eos (auto) 0.1 10^3/uL (0-0.7) 02/04/25 10:00
Absolute Basos (auto) 0.0 10^3/uL (0-0.2) 02/04/25 10:00
Immature Gran % 0.4 % (0-0.5) 02/04/25 10:00
Neutrophils % 83.8 % (42.2-75.2) H 02/04/25 10:00
Lymphocytes % 10.0 % (20.5-51.1) L 02/04/25 10:00
Monocytes % 5.0 % (1.7-9.3) 02/04/25 10:00
Eosinophils % 0.4 % (0-6) 02/04/25 10:00
Basophils % 0.4 % (0-2) 02/04/25 10:00
Nucleated RBC % 0 % 02/04/25 10:00
ESR 2 mm/hour (0-20) 02/05/25 05:44
PT 15.0 Sec (11.4-14.6) H 02/04/25 10:00
INR 1.15 02/04/25 10:00
APTT 28.8 Sec (23.4-35.0) 02/04/25 10:00
Sodium 142 mmol/L (135-145) 02/10/25 06:12
Potassium 4.3 mmol/L (3.5-5.1) 02/10/25 06:12
Chloride 105 mmol/L (98-107) 02/10/25 06:12
Carbon Dioxide 26 mmol/L (22-30) 02/10/25 06:12
BUN 25 mg/dl (7-17) H 02/10/25 06:12
Creatinine 0.8 mg/dL (0.6-1.0) 02/10/25 06:12
Estimated Creat Clear 61 ml/min 02/10/25 06:12
eGFR > 60.00 02/10/25 06:12
Glucose 87 mg/dl (70-99) 02/10/25 06:12
Calcium 9.4 mg/dl (8.4-10.2) 02/10/25 06:12
C-Reactive Protein < 5.00 mg/L (0.0-10.00) 02/05/25 09:17
Triglycerides 80 mg/dl (10-149) 02/05/25 05:44
Total Cholesterol 180 mg/dl (50-199) 02/05/25 05:44
LDL Cholesterol, Calc 61 mg/dl 02/05/25 05:44
VLDL Cholesterol, Calc 16 mg/dl (0-30) 02/05/25 05:44
HDL Cholesterol 103 mg/dl 02/05/25 05:44
Angiotensin Convert Enz 24 U/L (16-85) 02/05/25 09:17
Vitamin B12 392 pg/ml (239-931) 02/05/25 09:17
Folate 11.8 ng/ml (2.76-20) 02/05/25 09:17
Urine Color Yellow 02/08/25 22:28
Urine Clarity Clear (Clear) 02/08/25 22:28
Urine pH 6.0 (5.0-9.0) 02/08/25 22:28
Ur Specific [place] 1.010 (<1.030) 02/08/25 22:28
Urine Ketones Negative (Negative) 02/08/25:
Ur Occult Blood Reflex 3+ (Negative) A 02/08/25 22:28
Urine Nitrite (Reflex) Positive (Negative) A 02/08/25 22:28
Urine Bilirubin Negative (Negative) 02/08/25:
Urine Urobilinogen Negative (Neg - 1+) 02/08/25:28
Leukocyte Esterase Rfl 2+ (Negative) A 02/08/25 22:28
Urine RBC 0-2 /HPF (0-2) 02/08/25 22:28
Urine WBC (Reflex) 6-10 /HPF (0-5) 02/08/25 22:28
Ur Squamous Epith Cells 0-2 /LPF (Few) 02/08/25 22:28
Amorphous Crystals Seen 02/08/25 22:28
Urine Bacteria (Reflex) Many (Negative) A 02/08/25 22:28
Urine Glucose Negative (Negative) 02/08/25 22:28
Urine Albumin (Reflex) Negative (Neg - Trace) 02/08/25 22:28
CSF Appearance Clear 02/05/25 15:34
CSF Appearance Clear 02/05/25 15:34
CSF Color Colorless 02/05/25 15:34
CSF Color Colorless 02/05/25 15:34
CSF WBC 0 mm^3 (0-5) 02/05/25 15:34
CSF WBC 4 mm^3 (0-5) 02/05/25 15:34
CSF RBC 59 mm^3 02/05/25:
CSF RBC 415 mm^3 02/05/25:
CSF Cell Count Tube # 1 02/05/25:
CSF Cell Count Tube # 4 02/05/25 15:
CSF Glucose 61 mg/dl (40-70) 02/05/25:
CSF Total Protein 76 mg/dl (12-60) H 02/05/25:34
CSF Albumin 33 mg/dL (0-35) 02/05/25:
CSF IgG 4.0 mg/dL (0.0-6.0) 02/05/25:
Serum Albumin 4213 mg/dL (6592-3743) 02/05/25:
CSF IgG/Albumin 0.12 ratio (0.09-0.25) 02/05/25
CSF Alb/Ser Alb Index 7.8 ratio (0.0-9.0) 02/05/25:
CSF IgG Synthesis Rate <0.0 mg/d (<=8.0) 02/05/25
CSF Myelin Basic Protein 9.69 ng/mL (0.00-5.50) H 02/05/25
CSF Oligoclonal Bands Negative (Negative) 02/05/25
CSF Oligoclonal Bands # 0 Bands (0-1) 02/05/25
CSF Angiotensin Conv Enz 2.7 U/L (0.0-2.5) H 02/05/25
CSF VDRL Non reactive (Non Reactive) 02/05/25
IgG 1056 mg/dL (768-1632) 02/05/25:
IgG Index 0.48 ratio (0.28-0.66) 02/05/25:
RODRIGO IgG Screen Detected (None Detected) A 05/07/25 09:17
RODRIGO (Hep-2) <1:80 (<1:80) 02/05/25 09:17
RODRIGO Comment See note 02/05/25 09:17
Proteinase 3 (PR3) Ab 1 AU/mL (0-19) 02/05/25 09:17
Myeloperoxidase Ab 0 AU/mL (0-19) 02/05/25 09:17
Mult Sclerosis Intrep See note 02/05/25 15:34
Syphilis Serology Negative (Negative) 02/05/25 09:17
Lyme Specimen Source Cancelled 02/05/25 09:17
Lyme Screen IgG & IgM Negative (Negative) 02/05/25 09:17
Lyme Disease DNA (PCR) Cancelled 02/05/25 09:17
HTLV I/II Antibody Negative (Negative) 02/05/25 09:17
Miscellaneous Test Cancelled 02/05/25 15:34
POC Glucose 104 mg/dl (70-99) H 02/04/25 10:01
Diagnostic Results: as per HPI
C-spine MRI with and without keri�C2, C3, and C4 enhancing 4.4 cm intramedullary lesion, severe DJD.
Brain MRI with and without keri�no acute infarct or enhancement.
T spine MRI w/wo keri(02/06/2025) mild to moderate diffuse thoracic cord atrophy, T9/T10 herniation, T8/T9 syrinx, no pathology for cord enhancement, thyroid gland nodule,
Labs: Lyme screen�negative.
Echo -02/04/25
Normal left ventricular size, wall thickness and systolic function.
LV ejection fraction is 55-60% by volumetric assessment.
Normal right ventricular size and function.
Trace mitral regurgitation.
Trace aortic regurgitation.
Mild tricuspid regurgitation.
Estimated pulmonary artery pressure of 35 mmHg assuming a right atrial pressure
of 3 mmHg.
Trace pulmonic regurgitation.
Normal pericardium without effusion.
Mildly dilated aortic root.
Assessment:74 year old female with bilateral upper and lower extremities weakness
Plan
PM&R PT/OT to increase independence with ADLs, improve balance, coordination, endurance, strength, mobility, community reintegration, decreased burden of care on others and family education.
C2-C4 intrinsic myelopathy: Per neuro:Follow-up CSF aquaporin 4 antibodies.Continue Eliquis for stroke prevention.Switch methylprednisolone to prednisone 40 mg daily and titrate by 10 mg every 2 days GI prophylaxis
Thoracic spine: MODERATE-SIZED RIGHT CENTRAL-SUBARTICULAR DISC HERNIATION at T9/T10 causing moderate spinal cord compression. CENTRAL SYRINX in the THORACIC SPINAL CORD at the T8 and T9. OP neurosurgery consult
Chronic toxic polyneuropathy.
Stage III left breast cancer/Left arm lymphedema: status post remote RT
HTN: Metoprolol, losartan. monitor closely
HLD: Statin
Coronary artery disease : Aspirin, statin, beta-rosario
Atrial fibrillation: Resumed Eliquis. Continue beta-rosario
Hypothyroidism: levothyroxine 88mcg
Psych/depression: Psychology consult. Monitor mood, adjust medications as needed.
Skin: monitor for pressure sores/rashes/lesions.
Pain: acetaminophen or oxycodone as needed. Lidoderm patch
Bowel: Colace and Senna, PRN bisacodyl.
Bladder/UTI/Urinary Retention: Time void, PVRs, PRN straight cath. Ceftriaxone 1000 IV qd
GI Prophylaxis: Pantoprazole 40mg qd
DVT Prophylaxis: Eliquis 5mg bid
Pulmonary: Incentive spirometry
Safety: Continue to reinforce assistance with all transfers.
Code Status: Full code
Dispo (date/plan/equipment needs): Home with family care. Social history reviewed.
Functional and Medical Goals: Modified Independent with ADL�s, ambulation, transfers
Discharge Destination: Acute inpatient rehabilitation
Summary of recommendations:Would benefit from inpatient rehabilitation for PT/OT to increase independence with ADLs, improve balance, coordination, endurance, strength, mobility, community
C2-C4 intrinsic myelopathy: Per neuro:Follow-up CSF aquaporin 4 antibodies.Continue Eliquis for stroke prevention.Switch methylprednisolone to prednisone 40 mg daily and titrate by 10 mg every 2 days GI prophylaxis. Please comment on duration of
prednisone.
Thoracic spine:cord compression, syrinx-recommend OP neurosurgery evaluation
UTI: cont ceftriaxone-
Pulmonary: Incentive spirometry.
Thank you for allowing me to care for your patient. Please contact me with any questions or concerns.
Attending Note:
Did not see patient, she was admitted to [facility].
--- NOTE | 2025-02-10 17:15 | CM ---
PT OT indicate acute rehab.
Referral for [facility] referral placed.
Spoke with Josh Ventura she said pt is appropriate for acute rehab. No [facility] bed avavilable today.
CM follow up with Josh in am for bed availability.
PLAN To acute rehab after accepted
[2025-02-10] MEDS: LEXAPRO 5 MG PO (20:04)
[2025-02-10] MEDS: LIDOCAINE 4% PATCH TOPICAL (22:06)
[2025-02-10] MEDS: MELATONIN 5 MG PO (22:07)
[2025-02-10 23:35] VITALS: BP 129/66
[2025-02-11] MEDS: SYNTHROID 88 MCG PO (05:39)
[2025-02-11 06:55] LABS: Hematocrit 39.3 % (37.0-47.0); Hemoglobin 13.3 g/dL (12.0-16.0); Mean Corp Hgb Conc. 33.8 g/dL (33.0-37.0); Mean Corpuscular Hgb 30.9 pg (27.0-31.0); Mean Corpuscular Volume 91.2 fL (81.0-99.0); Mean Platelet Volume 8.9 fL (7.4-10.4); Platelet Count 278 10^3/uL (130-400); Red Blood Cell Count 4.31 10^6/uL (4.20-5.40); White Blood Cell Count 10.7 10^3/uL (4.8-10.8)
[2025-02-11 07:06] LABS: Blood Urea Nitrogen 24 mg/dl (7-17); Calcium 8.8 mg/dl (8.4-10.2); Carbon Dioxide 27 mmol/L (22-30); Chloride 110 mmol/L (98-107); Estimated Creatinine Clearance 61 ml/min; Glucose 84 mg/dl (70-99); Magnesium 2.3 mg/dl (1.6-2.3); Phosphorus 3.7 mg/dl (2.5-4.5); Potassium 4.2 mmol/L (3.5-5.1); Sodium 139 mmol/L (135-145); eGFR > 60.00
[2025-02-11 07:25] VITALS: BP 117/66
[2025-02-11] MEDS: ELIQUIS 5 MG PO (08:24)
[2025-02-11] MEDS: PROTONIX 40 MG PO (08:24)
[2025-02-11] MEDS: COZAAR 25 MG PO (08:24)
[2025-02-11] MEDS: DELTASONE 40 MG PO (08:24)
[2025-02-11] MEDS: TOPROL XL 25 MG PO (08:24)
[2025-02-11] MEDS: CRESTOR 20 MG PO (08:24)
[2025-02-11] MEDS: SENOKOT-S 1 TABLET PO (08:25)
[2025-02-11] MEDS: VITAMIN D3 (cholecalciferol) 50 MCG PO (08:25)
[2025-02-11] MEDS: MIRALAX 17 GRAMS PO (08:27)
--- NOTE | 2025-02-11 11:34 | W.PN.HOSP.TC ---
Addendum entered and electronically signed by Kiara Fletcher MD 02/11/25 14:55:
UTI
-received 3 days IV ceftriaxone
-urine cx E. coli sensitivities appreciated
-switching IV abx to PO Augmentin for 2 more days to complete total 5 days abx treatment
Original Note:
Today's Communication/Plan
-
discharge
Assessment / Plan
Assessment / Plan
Physical Exam
General: NAD
HEENT: Scleral Anicteric MMM No JVD
Pulm: CTABL
Cardio: RRR, S1/S2
Abd: Soft, NT, Distended, BS+
Skin: Warm, Dry
Neuro:AOx3 conversant coherent
Psych: Calm
74F afib HTN Hypothyroidism HLD Depression remote hx Breast Ca LUE lymphedema here for evaluation weakness lower ext's numbness left hand determined to be due to C2-C4 myelopathy unclear etiology.
C2-C4 intrinsic myelopathy although unclear as to etiology as potential causes could be autoimmune inflammatory demyelinating less likely vascular or infectious neoplastic per neurology
LP completed, results appreciated, Myelopathy serologies ordered, outpt follow up neurology recommended
Thoracic spine MRI appreciated
1. MODERATE-SIZED RIGHT CENTRAL-SUBARTICULAR DISC HERNIATION at T9/T10 causing moderate spinal cord compression.
2. CENTRAL SYRINX in the THORACIC SPINAL CORD at the T8 and T9 levels superior to the T9/T10 cord compression.
3. Mild to moderate diffuse atrophy of the thoracic spinal cord.
4. No MRI evidence for abnormal enhancement in the thoracic spinal cord.
5. 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
6. Mildly to moderately exaggerated thoracic kyphosis.
7. Minimal bilateral pleural effusions.
outpt Neurosurgery follow up recommended
Steroids�high-dose 5-day course - completed on 02/09 prednisone taper as per Neuro
PT/OT following recommend acute inpatient rehab.
Physiatry consult appreciated
Atrial fibrillation�paroxysmal
Currently in sinus rhythm
Cont Eliquis
Continue beta-rosario
Hypothyroidism
Continue Synthroid
Hypertension
Continue antihypertensive
Depression
Continue antidepressives
Constipation
resolved with Bowel reg
medically stable for discharge Acute Rehab with outpatient follow up recommendations.
Total Time Preparing Discharge __40 minutes including examination of the patient, summary of the hospital stay, instructions for continuing care to all relevant caregivers; and preparation of discharge records, prescriptions, and referral
forms if necessary.
Anticipated Discharge: Today
Subjective/Interval History
-
Date of Service: February 11, 2025
Seen and examined at bedside in no acute distress resting comfortably in bed. Reports feeling well. Constipation resolved. Looking forward to Acute Rehab. Denies new acute issues.
Objective Data
-
Labs:
Laboratory Results
02/11/25
05:51
WBC 10.7
Hgb 13.3
Hct 39.3
Plt Count 278
Sodium 139
Potassium 4.2
Chloride 110 H
Carbon Dioxide 27
BUN 24 H
Creatinine 0.8
Glucose 84
Calcium 8.8
Vital Signs:
Vital Signs
Temp Pulse Resp BP Pulse Ox
98.4 F 63 18 117/68 93
02/11/25 07:25 02/11/25 08:24 02/11/25 07:25 02/11/25 08:24 02/11/25 07:25
I&O
02/10/25 02/11/25 02/12/25
06:59 06:59 06:59
Intake Total 1190 / 1190 1919
Balance 1190 / 1190 1919
--- NOTE | 2025-02-11 12:37 | CM ---
Chart reviewed. Patient will d/c to [facility] once bed available
Spoke w/ Selvin/Josh, bed available today for patient, can transfer at any time
Updated hospitalist
Met w/ patient bedside, informed that [facility] can offer a bed today
IMM verbally reviewed, copy given to patient, copy on chart
Plan: Transfer to [facility] today
--- NOTE | 2025-02-11 15:09 | W.DCSUMMARY ---
Discharge Summary
Discharge Data
Date of Admission: 02/04/25
Date of Discharge: 02/11/25
-
Pending Results: No
Discharge Plan
-
Patient Disposition: Acute Rehab Facility
Discharge Diagnosis/Procedures: C2-C4 intrinsic myelopathy unclear etiology
Disc Herniation T9/T10 causing moderate spinal cord compression
Central syrinx Thoracic spine T8 and T9 levels
Mild to moderate diffuse atrophy of the thoracic spinal cord.
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
Paroxysmal Atrial Fibrillation
Hypothyroidism
Hypertension
Depression
Condition: Fair
Diet: Regular
Activity: With assistance, As tolerated and With Walker
Driving Restrictions: Not until seen by your Dr
Bathing Restrictions: None
Other Services: PT and OT
Activity Restrictions/Additional Instructions:
Augmentin prescribed for two more days to complete treatment urinary tract infection.
Melatonin prescribed as needed for sleep
Prednisone taper prescribed for myelopathy as per neuro recommendations:
Prednisone 30 mg daily for two days, then 20 mg daily for two days, then 10 mg daily for two days, then stop.
Protonix GI prophylaxis has been prescribed while on steroids, discontinue when steroid taper completes as above.
On completion Acute Rehab, please follow up with primary care provider in 1 week of discharge and follow up with Neurosurgery and Neurology in 2-4 weeks of discharge.
Referrals:
Brijesh Alexander DO [Active] - in two to four weeks
Ho Gonzáles MD [Active] - in two to four weeks
UNKNOWN - PT DOES,NOT KNOW [Family Provider] -
Prescriptions:
New
melatonin 5 mg Tablet
5 mg PO HS PRN (Reason: Sleep) Qty: 7 0RF
pantoprazole 40 mg Tablet,Delayed Release (Dr/Ec)
40 mg PO DAILY Qty: 6 0RF
Rx Instructions:
For GI ppx while on steroids.
OK to dc when steroids complete
amoxicillin-pot clavulanate 500-125 mg Tablet
1 tab PO Q12 2 Days Qty: 4 0RF
prednisone 10 mg Tablet
See Rx Instructions .ROUTE .COMPLEX Qty: 12 0RF
Rx Instructions:
Take By Mouth:
30 mg daily x2 days, 20 mg daily x2 days,
10 mg daily x2 days
Continued
cholecalciferol (vitamin D3) [Vitamin D3] 2,000 UNIT capsule
2,000 unit PO DAILY
Eliquis 5 MG tablet
5 mg PO BID Qty: 0 0RF
metoprolol succinate [Toprol XL] 50 mg tablet extended release 24 hr
50 mg PO DAILY Qty: 30 2RF
acetaminophen 650 mg Tablet Extended Release
1,300 mg PO [id number] PRN (Reason: mild pain)
losartan 50 MG tablet
25 mg PO BID
levothyroxine [Synthroid] 88 mcg Tablet
88 mcg PO DAILY
rosuvastatin [Crestor] 10 mg Tablet
10 mg PO DAILY
escitalopram oxalate [Lexapro] 5 mg Tablet
5 mg PO HS
Discontinued
methylprednisolone [Medrol (Sean)] 4 mg Tablets,Dose Pack
0 mg PO PER PKG DIR
Discharge Orders:
Discharge Patient (As Directed); Ordered 02/11/25
Ordered By: Kiara Fletcher
Discharge Date and Time
Print Language: WOLOF
[2025-02-11 15:11] VITALS: BP 107/57
[2025-02-11] MEDS: AUGMENTIN 500 MG/125 MG 1 TABLET PO (15:15)
== END 2025-02-11 16:45 | DRG 74 ==
LOC: 4 EAST ACU 12:19
PROVIDERS: Nurse Practitioner Family; Radiology Vascular & Interventional Radiology; ADMITTING PHYSICIAN Hospitalist; ATTENDING PHYSICIAN Internal Medicine; CONSULT PHYSICIAN Physical Medicine & Rehabilitation; EMERGENCY PHYSICIAN Emergency Medicine; OTHER PHYSICIAN Psychiatry & Neurology Neurology
PROC: 009U3ZX Drainage of Spinal Canal, Percutaneous Approach, Diagnostic (ICD-10-PCS; 2025-02-05)
DX: M54.12 Radiculopathy, cervical region (principal); G95.89 Other specified diseases of spinal cord; M51.04 Intervertebral disc disorders with myelopathy, thoracic region; G61.81 Chronic inflammatory demyelinating polyneuritis; N39.0 Urinary tract infection, site not specified; I48.0 Paroxysmal atrial fibrillation; E03.9 Hypothyroidism, unspecified; I10 Essential (primary) hypertension; F32.A Depression, unspecified; B96.20 Unspecified Escherichia coli [E. coli] as the cause of diseases classified elsewhere; I89.0 Lymphedema, not elsewhere classified; Z80.3 Family history of malignant neoplasm of breast; Z79.01 Long term (current) use of anticoagulants
CPT/HCPCS: 62328; 70450; 70496; 70498; 70553; 72156; 72157; 80048; 80061; 81003; 81015; 82040; 82042; 82164; 82607; 82746; 82784; 82945; 82962; 83516; 83735; 83873; 83916; 84100; 84157; 85025; 85027; 85610; 85652; 85730; 86038; 86039; 86140; 86592; 86618; 86780; 86790; 87015; 87070; 87086; 87088; 87186; 87205; 87476; 87483; 88108; 89051; 92526; 92610; 93005; 93306; 97110; 97116; 97163; 97167; 97530; 97535; 99291; A9575; Q9967

== ENCOUNTER → 2025-05-22 10:49 | Outpatient (REF) | payer MEDICARE, OTHER, SELFPAY | LOC: PAVMRI 10:49 | PROVIDERS: ATTENDING PHYSICIAN Specialist; FAMILY PHYSICIAN Internal Medicine | DX: G37.3 Acute transverse myelitis in demyelinating disease of central nervous system (principal) | CPT/HCPCS: 72156; A9575 ==